=== PATIENT | male | born 1985 | race Caucasian/White ===

== ENCOUNTER 2019-07-03 10:07 | Emergency (ER) | payer OTHER, SELFPAY ==
[2019-07-03 10:19] VITALS: BP 125/82; PULSE 71; RESP 20; TEMP 36.9; O2SAT 100
--- NOTE | 2019-07-03 11:09 | ED.URI ---
HPI - URI/Sore Throat General Chief Complaint: Upper Respiratory Infection Stated Complaint: cough/sinus pressure Source: patient and RN notes reviewed Mode of arrival: ambulatory Limitations: no limitations History of Present Illness HPI Narrative: The patient, a smoker/nondrinker, presents with about 1/2-week history of cough, congestion, possible wheeze. No fever measured, earache, sore throat patient similar episode; symptoms are mild unrelieved with OTC antihistamines. In May for which he had a course of doxycycline; patient advised to discontinue smoking. Patient history of back pain pending injection patient this week- advised to call PMD with discharge med list and diagnosis; Related Data Home Medications Medication Instructions Recorded Confirmed methocarbamol [Robaxin-750] 750 mg PO HS PRN 07/03/19 07/03/19 Allergies Allergy/AdvReac Type Severity Reaction Status Date / Time Penicillins Allergy Severe Swelling Verified 07/03/19 10:22 aspirin Allergy Mild Diarrhea Verified 07/03/19 10:22 amoxicillin Allergy Unknown Unknown Verified 07/03/19 10:22 prednisone AdvReac Swelling Verified 07/03/19 10:31 of the Eye Review of Systems Review of Systems: Narrative: General/Constitutional: No weight loss,fever Eyes: N0: Redness,discharge Ears/Nose/Throat: No: Epistaxis,ear discharge Respiratory: Denies: Hemoptysis Gastrointestinal: No Vomiting, Bleeding-rectal Skin: No Lumps, eruption Neurologic: No Focal Weakness,Sz Hematologic: Denies: Petechiae/Purpura Psychiatric: No: Suicida ideationl All Other Systems: Reviewed and Negative PMFSH Comments At time of signature, agree with nursing past medical, surgical, social and family history. There is no relevant family history pertinent to the presenting complaint Exam Narrative: Exam Narrative: General Appearance: Well appearing, Well nourished EYE: PERRLA, Conjunctiva clear Ears: Auditory canal normal, TM normal Nose: Rhinorrhea, Mucousal erythema Mouth/Throat: MM moist, Uvula midline, Pharyngeal erythema Neck: Supple, No adenopathy Respiratory: No respiratory distress, Breath sounds equal, Clear to auscultation Cardiovascular: RRR, No JVD Musculoskeletal: Non tender, Normal strength Skin: Warm, Dry Neurological: A&O x3, CN II-XII intact Psychiatric: Normal mood, Normal affect Course Vital Signs Vital signs: Vital Signs Temperature 98.4 F 07/03/19 10:19 Pulse Rate 71 07/03/19 10:19 Respiratory Rate 20 07/03/19 10:19 Blood Pressure 125/82 07/03/19 10:19 Pulse Oximetry 100 07/03/19 10:19 Temperature 98.4 F 07/03/19 10:19 Pulse Rate 71 07/03/19 10:19 Respiratory Rate 20 07/03/19 10:19 Blood Pressure 125/82 07/03/19 10:19 Pulse Oximetry 100 07/03/19 10:19 MDM - URI/Sore Throat Lab Data Labs: Influenza A Screen Negative Reference Range: Negative Influenza B Screen Negative Reference Range: Negative Discharge Plan Discharge Clinical Impression: Upper respiratory infection Qualifiers: URI type: acute laryngotracheitis Qualified Code(s): J04.2 - Acute laryngotracheitis Patient Disposition: Home, Self-Care Condition: Stable Instructions: Antibiotic Form, Acute Bronchitis (ED) Prescriptions: New azithromycin 250 mg tablet See Rx Instructions .ROUTE .COMPLEX Qty: 6 RF: 0 codeine-guaifenesin 10-100 mg/5 mL liquid 7.5 ml PO Q6H PRN (Reason: cough) Qty: 118 RF: 0 benzonatate [Tessalon Perles] 100 mg capsule 100 mg PO TID Qty: 20 RF: 1 No Action methocarbamol [Robaxin-750] 750 mg Tablet 750 mg PO HS PRN (Reason: Pain) RF: 0 Interventions: Discharge Disposition Last Done: 07/03/19 10:45 Follow-up/Referrals: UNKNOWN,DOCTOR [Primary Care Provider] -
== END 2019-07-03 10:45 | disposition home or self-care (01) ==
PROVIDERS: Emergency Provider Emergency Medicine
DX: J04.2 Acute laryngotracheitis (principal); F17.210 Nicotine dependence, cigarettes, uncomplicated
CPT/HCPCS: 87804; 99213; G0463

== ENCOUNTER 2019-09-04 12:19 | Emergency (ER) | payer OTHER, SELFPAY ==
[2019-09-04 12:20] VITALS: BP 127/83; PULSE 59; RESP 20; TEMP 36.5; O2SAT 100
--- NOTE | 2019-09-04 12:46 | ED.URI ---
HPI - URI/Sore Throat General Chief Complaint: Upper Respiratory Infection Stated Complaint: drainage/cough/wheezing Time Seen by Provider: 09/04/19 12:33 Source: patient and RN notes reviewed Mode of arrival: ambulatory Limitations: no limitations History of Present Illness HPI Narrative: Patient presents today with a 2-week history of copious postnasal drip, occasional cough that is productive, wheezing at night, nasal congestion. Denies fever, shortness of breath. He has been taking Zyrtec without relief. He does have history of seasonal allergies. Denies history of asthma or COPD. No history of sinus surgeries. MD elicited complaint: cough and nasal congestion Related Data Home Medications Medication Instructions Recorded Confirmed ibuprofen 800 mg PO Q6H PRN 03/30/19 09/04/19 methocarbamol [Robaxin-750] 750 mg PO TID PRN 03/30/19 09/04/19 Allergies Allergy/AdvReac Type Severity Reaction Status Date / Time Penicillins Allergy Difficulty Verified 09/04/19 12:29 Breathing prednisone Allergy Swelling Verified 09/04/19 12:45 of the Eye Review of Systems Review of Systems: Narrative: CONSTITUTIONAL: Denies body aches, fever, chills, or sweats. EYES: Denies visual changes, redness, or discharge. ENT: Denies rhinorrhea, sore throat, or otalgia.+ Congestion, postnasal drip CARDIOVASCULAR: Denies chest pain, palpitations, or edema. RESPIRATORY: Denies dyspnea.+ Cough, wheezing GASTROINTESTINAL: Denies abdominal pain, nausea, vomiting, or diarrhea. GENITOURINARY: Denies dysuria or hematuria. SKIN: Denies rash, itching, or wounds. MUSCULOSKELETAL: Denies back pain, joint pain, or myalgia. NEUROLOGIC: Denies headache, numbness, tingling, or weakness. PSYCH: Denies depression or anxiety. PMFSH Comments At time of signature, I have reviewed and agree with nursing past medical, surgical, social and family history unless otherwise noted. Please see nursing chart for further information. There is no relevant family history pertinent to the presenting complaint Exam Narrative: Exam Narrative: GENERAL: Well-appearing, well-nourished, and in no acute distress. HEAD: Normocephalic, atraumatic. EYES: EOMI. No redness or drainage. Conjunctivae normal. ENT: Mucous membranes pink and moist. Nares clear. Nasal turbinates are slightly edematous with rhinorrhea. TMs normal bilaterally. Throat normal. Uvula midline. Copious clear postnasal drip noted. NECK: Normal AROM. Supple. No lymphadenopathy. CHEST: No respiratory distress. Clear to auscultation. HEART: Regular rate and rhythm. No murmur appreciated. Normal peripheral pulses. EXTREMITIES: Normal range of motion. No edema. SKIN: Warm, dry, no rash. Capillary refill normal. Normal skin turgor. NEURO: No focal deficits. Alert and oriented x3. Gait steady. PSYCH: Normal affect. No signs of depression or anxiety. Course Vital Signs Vital signs: Vital Signs Temperature 97.7 F 09/04/19 12:20 Pulse Rate 59 L 09/04/19 12:20 Respiratory Rate 20 09/04/19 12:20 Blood Pressure 127/83 09/04/19 12:20 Pulse Oximetry 100 09/04/19 12:20 Temperature 97.7 F 09/04/19 12:20 Pulse Rate 59 L 09/04/19 12:20 Respiratory Rate 20 09/04/19 12:20 Blood Pressure 127/83 09/04/19 12:20 Pulse Oximetry 100 09/04/19 12:20 Reviewed. Pt has been instructed to follow up with his PCP regarding his elevated blood pressure today. MDM - URI/Sore Throat Differential Diagnosis Differential diagnosis: Likely upper respiratory infection, otitis media, sinusitis, viral infection, bronchitis and other (Allergic rhinitis) Medical Records Attestation: I reviewed the patient's medical records. Critical Care Time Critical Care Time Critical Care Time: No Discharge Plan Discharge Clinical Impression: Allergic rhinitis Qualifiers: Allergic rhinitis trigger: unspecified Allergic rhinitis seasonality: unspecified Qualified Code(s): J30.9 - Allergic rhinitis,
== END 2019-09-04 12:50 | disposition home or self-care (01) ==
PROVIDERS: Emergency Provider Nurse Practitioner
DX: J30.9 Allergic rhinitis, unspecified (principal)
CPT/HCPCS: 99213; G0463

== ENCOUNTER → 2019-09-20 12:42 | Outpatient (CLI) | payer OTHER, SELFPAY ==
--- NOTE | ~2019-09-20 | XR_ITS ---
XR abdomen/kub 1V 09/20/2019 13:06 Indication: Possible mass in the abdomen Procedure: Upright AP view of the abdomen Comparison: 04/22/2004 Findings: Nonobstructive bowel gas pattern. Moderate colonic fecal loading. No abnormal calcification s. No acute osseous abnormality. There are surgical changes at L5-S1. Impression: 1: No acute abdominal abnormality. Reviewed, dictated and finalized at location A. Impression: 1: No acute abdominal abnormality.
== END ==
PROVIDERS: PCP Emergency Medicine; Visit Provider Emergency Medicine
DX: R19.00 Intra-abdominal and pelvic swelling, mass and lump, unspecified site (principal)
CPT/HCPCS: 74018

== ENCOUNTER → 2020-01-02 10:46 | Outpatient (CLI) | payer OTHER, SELFPAY ==
--- NOTE | ~2020-01-02 | XR_ITS ---
XR chest 2V DATE: 01/02/2020 11:03 INDICATION: Tobacco use TECHNIQUE: 2 views COMPARISON: 04/08/2019 PA and lateral chest FINDINGS: Normal heart size. No hilar or mediastinal enlargement. No pulmonary infiltrate or consolid ation, pleural effusion or pulmonary vascular congestion or pneumothorax is detected. IMPRESSION: No active cardiopulmonary disease Reviewed, dictated and finalized at location A.
== END ==
PROVIDERS: PCP Emergency Medicine; Visit Provider Emergency Medicine
DX: Z72.0 Tobacco use (principal)
CPT/HCPCS: 71046

== ENCOUNTER 2020-06-16 08:23 | Outpatient (NON) | payer OTHER, SELFPAY ==
[2020-06-17 17:16] LABS: SARS-CoV-2 RNA PCR Negative
== END 2020-06-16 08:24 ==
PROVIDERS: PCP Emergency Medicine; Visit Provider Emergency Medicine
DX: R68.89 Other general symptoms and signs (principal); Z20.822 Contact with and (suspected) exposure to COVID-19
CPT/HCPCS: C9803; U0003; U0005

== ENCOUNTER → 2020-07-27 12:29 | Outpatient (CLI) | payer OTHER, SELFPAY ==
--- NOTE | ~2020-07-27 | XR_ITS ---
EXAMINATION: XR chest 2V DATE: 07/27/2020 12:44 INDICATION: Cough and shortness of breath. TECHNIQUE: Frontal and lateral views of the chest were obtained. COMPARISON: Chest 2 views 01/02/2020 FINDINGS: There is mild atelectasis in left lower lung zone. No pleural effusion or pneumothorax. The heart size is normal. IMPRESSION: 1. Mild atelectasis in left lower lung zone. Reviewed, dictated and finalized at location A. NT SCOUT
== END ==
PROVIDERS: PCP Emergency Medicine; Visit Provider Emergency Medicine
DX: R05 Cough (principal); R91.8 Other nonspecific abnormal finding of lung field
CPT/HCPCS: 71046

== ENCOUNTER → 2020-07-30 09:26 | Outpatient (CLI) | payer OTHER, SELFPAY ==
[2020-07-31 22:47] LABS: SARS-CoV-2 RNA PCR Negative
== END ==
PROVIDERS: PCP Emergency Medicine; Visit Provider Emergency Medicine
DX: Z20.822 Contact with and (suspected) exposure to COVID-19 (principal); J06.9 Acute upper respiratory infection, unspecified
CPT/HCPCS: C9803; U0003; U0005

== ENCOUNTER 2020-08-22 07:55 | Outpatient (CLI) | payer OTHER, SELFPAY ==
--- NOTE | 2020-08-22 12:05 | WPDPFTINT ---
PFT Interpretation This is a pulmonary function test with spirometry, plethysmography and diffusing capacity. The test was performed and results interpreted in accordance with the 2019 and 2005 ATS/ERS Task Force guidelines respectively using the Global Lung Function Initiative-2012 reference equations. Patient demonstrated good effort and cooperation. Reproducibility criteria were met. The quality of the pre bronchodilator spirometry maneuver was Grade B. Findings: Spirometry: the contour of the inspiratory and expiratory flow tracing are normal. The FVC is 4.00 L, 84% predicted. The FEV1 is 3.22 L, 82% predicted. The FEV1: FVC ratio was 80%. Plethysmography: The total lung capacity is 5.35 L, 85% predicted. The functional residual capacity is 2.59 L, 85% predicted. The residual volume is 1.36 L, 85% predicted. Diffusing capacity: The absolute diffusion capacity is 16.4, 51% predicted. The diffusing capacity corrected for alveolar volume is 3.61, 70% predicted. Impression: The spirometry is normal without evidence of an obstructive abnormality. The lung volumes are normal. The absolute diffusing capacity is moderately decreased and is mildly decreased when corrected for alveolar volume. There are no prior studies for comparison PFT Procedure Performed PFT Procedure Performed Plethysmography (Lung Vol) Diffusing Cap (DLCO) Flow Vol Loop
== END 2020-08-22 07:56 | disposition home or self-care (01) ==
PROVIDERS: PCP Emergency Medicine; Visit Provider Emergency Medicine
DX: J40 Bronchitis, not specified as acute or chronic (principal)
CPT/HCPCS: 94375; 94726; 94729

== ENCOUNTER → 2020-10-16 12:54 | Outpatient (CLI) | payer OTHER, SELFPAY ==
--- NOTE | ~2020-10-16 | XR_ITS ---
XR lumbar spine 2-3V 10/16/2020 13:16 Indication: Chronic low back pain Procedure: 3 views lumbar spine Comparison: 10/15/2005 Findings: There is disc narrowing at all lumbar levels. There is prosthetic cage devices at the L5-S1 level. There is mild multilevel facet hypertrophy. There is hypertrophy of the spinous processes whi ch abuts at the lower lumbar spine. Pedicles intact. No acute fracture or traumatic malalignment. No evidence for spondylolisthesis. Sacral foramen are symmetric. Impression: 1: Mild-moderate lumbar spondylosis. Reviewed, dictated and finalized at location A. Impression: 1: Mild-moderate lumbar spondylosis.
== END ==
PROVIDERS: PCP Pain Medicine Pain Medicine; Visit Provider Pain Medicine Pain Medicine
DX: M47.26 Other spondylosis with radiculopathy, lumbar region (principal)
CPT/HCPCS: 72100

== ENCOUNTER 2021-03-14 15:47 | Outpatient (RCR) | payer OTHER, SELFPAY ==
[2021-03-14 16:05] LABS: Basophils Absolute Auto 0.1 K/mm3 (0.0-0.1); Basophils Percent Auto 0.6 % (0.2-1.2); Eosinophils Absolute Auto 0.3 K/mm3 (0-0.3); Eosinophils Percent Auto 2.4 % (0-4.4); Hematocrit 42.8 % (42.0-52.0); Hemoglobin 14.4 g/dL (14.0-18.0); Immature Granulocyte Absolute 0.03 K/mm3 (0.00-0.031); Immature Granulocyte Percent A 0.3 % (0-0.5); Lymphocytes Absolute Auto 3.21 K/mm3 (0.9-3.2); Lymphocytes Percent Auto 30.9 % (18.3-44.2); Mean Corpuscular HGB Conc 33.6 g/dl (32-36); Mean Corpuscular Hemoglobin 30.7 pg (26-34); Mean Corpuscular Volume 91.3 fl (80-100); Mean Platelet Volume 10.3 fl (7.4-10.4); Monocytes Absolute Auto 0.9 K/mm3 (0.1-0.6); Monocytes Percent Auto 8.5 % (2.6-8.5); Neutrophils Percent Auto 57.3 % (45.5-73.1); Platelet Count Result 275 k/mm3 (150-375); Red Blood Count 4.69 M/mm3 (4.6-6.20); Red Cell Distribution Width 12.8 % (11.5-14.5); White Blood Count 10.4 K/mm3 (4.5-10.0)
[2021-03-14 17:02] LABS: Alanine Aminotransferase 31 U/L (4-50); Albumin Level 4.5 g/dL (3.5-5.1); Alkaline Phosphatase 90 U/L (38-126); Anion Gap 10 mmol/L (8-16); Aspartate Amino Transferase 29 U/L (17-59); Bilirubin,Total 0.5 mg/dL (0.2-1.3); Blood Urea Nitrogen 8 mg/dL (9-20); CRP 0.8 mg/dL (<1.0); Calcium 9.3 mg/dL (8.4-10.2); Carbon Dioxide 29 mmol/L (22-30); Chloride 102 mmol/L (98-107); Estimated Glomerular Filt Rate > 60; Glucose 87 mg/dL (65-110); Potassium 3.4 mmol/L (3.4-5.0); Sodium 141 mmol/L (137-145)
[2021-03-14 17:25] LABS: Erythrocyte Sedimentation Rate 11 mm/hr (0-20)
== END 2021-06-12 23:59 | disposition home or self-care (01) ==
LOC: ANHLAB 15:47
PROVIDERS: PCP Pain Medicine Pain Medicine; Visit Provider Internal Medicine Hematology & Oncology
DX: D72.829 Elevated white blood cell count, unspecified (principal)
CPT/HCPCS: 36415; 80053; 85025; 85652; 86140; 88184

== ENCOUNTER 2021-03-27 14:53 | Outpatient (CLI) | payer OTHER, SELFPAY ==
--- NOTE | ~2021-03-27 | XR_ITS ---
XR chest 2V DATE: 03/27/2021 15:21 INDICATION: Cough. Covid-positive. TECHNIQUE: 2 views COMPARISON: 07/27/2020 2 view chest FINDINGS: Normal heart size. No hilar or mediastinal enlargement. No pulmonary infiltrate or consolid ation, pleural effusion or pulmonary vascular congestion or pneumothorax. IMPRESSION: No active cardiopulmonary disease Reviewed, dictated and finalized at location A.
== END 2021-03-27 14:54 | disposition home or self-care (01) ==
LOC: ANHIMG 15:01
PROVIDERS: PCP Emergency Medicine; Visit Provider Emergency Medicine
DX: U07.1 COVID-19 (principal); R05.9 Cough, unspecified
CPT/HCPCS: 71046

== ENCOUNTER 2021-10-08 14:34 | Emergency (ER) | payer OTHER, SELFPAY ==
--- NOTE | ~2021-10-08 | XR_ITS ---
XR foot RT min 3V 10/08/2021 14:55 Indication: Right foot pain Procedure: 4 views right foot Comparison: No prior studies for comparison. Findings: There is mild osteoarthritis of the first MTP joint. No fracture or traumatic malalignment. Lisfranc joint intact. Impression: 1: No acute bone or joint abnormality. 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 Reviewed, dictated and finalized at location A. Impression: 1: No acute bone or joint abnormality. 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
[2021-10-08 14:44] VITALS: BP 123/80; PULSE 82; RESP 16; TEMP 36.9; O2SAT 98
--- NOTE | 2021-10-08 14:52 | ED.LOWEXIN ---
HPI - Extremity Injury (Lower) General Chief Complaint: Extremity Injury, Lower Stated Complaint: right foot pain Time Seen by Provider: 10/08/21 14:54 Source: patient, RN notes reviewed and old records reviewed Mode of arrival: ambulatory Limitations: no limitations History of Present Illness HPI Narrative: 36-year-old male presents to the [facility] with complaints of right foot pain since stepping in a hole. Has full range of motion, positive pedal pulse. No treatment prior to arrival Related Data Home Medications Medication Instructions Recorded Confirmed cetirizine [Zyrtec] 10 mg PO DAILY 10/08/21 10/08/21 Allergies Allergy/AdvReac Type Severity Reaction Status Date / Time Penicillins Allergy Severe Swelling Verified 09/20/19 18:27 aspirin Allergy Mild Diarrhea Verified 09/20/19 18:27 amoxicillin Allergy Unknown Unknown Verified 09/20/19 18:27 prednisone AdvReac Swelling Verified 09/20/19 18:27 of the Eye Review of Systems Review of Systems: All systems reviewed & are unremarkable except as noted in HPI and below Constitutional: Constitutional: Reports no additional constitutional complaints, Denies chills and Denies fever(s) Eyes: Eyes: Reports no additional eye complaints ENT: Reports system reviewed and no additional complaints, except as documented Cardiovascular: Cardiovascular: Reports no additional cardiovascular complaints and Denies chest pain Respiratory: Respiratory: Reports no additional respiratory complaints and Denies cough Gastrointestinal: Gastrointestinal: Reports no additional gastrointestinal complaints and Denies abdominal pain Musculoskeletal: Musculoskeletal: Reports as per HPI, Reports arthralgias and Reports joint swelling (Right foot first metatarsal) Integumentary/Breasts: Skin/Breast: Reports system reviewed and no additional complaints, except as docu and Denies rash Neurologic: Reports system reviewed and no additional complaints, except as documented Psychiatric: Psychiatric: Reports no additional psychiatric complaints Allergic/Immunologic: Allergic/Immunologic: Reports no additional allergic/immunologic complaints PMFSH Past Medical History Medical History Patient denies medical problems Surgical History Surgical History No pertinent past surgical history Social History Social History Smoking status: Current every day smoker Gender identity (if verbalized by the patient): Male Comments At the time of my signature, I reviewed and agree with the nursing past medical, surgical, social, and family history. There is no relevant family history pertinent to the patient complaint. Exam Const: General: healthy appearing, no acute distress and alert Nutritional Appearance: well nourished Orientation/consciousness: patient oriented x3 Limitations: no limitations HENMT: Head: normal to inspection Eyes: Pupils: Equal, round and reactive pupils present Neck: Neck: normal visual inspection, no lymphadenopathy and no meningeal signs Chest: Chest palpation & inspection: normal inspection of the chest Resp: Effort & Inspection: normal respiratory effort Auscultation: clear to auscultation bilaterally Cardio: Rate: regular rate Rhythm: regular rhythm Back/Spine/Pelvis: Back: no CVA tenderness Skin: General skin exam: normal color Neuro: General: patient oriented x3, moves all extremities, no meningeal signs and no focal motor deficits Cranial nerves: Yes Equal, round and reactive pupils present Speech: normal speech Gait exam (Neuro): Normal gait present Extrem: General: capillary refill normal and normal exam except as noted Ankle/foot/toe images: 1. Bruising and swelling noted Psych: Appearance: grossly normal and well kempt Mental Status: mental status grossly normal Affect:
== END 2021-10-08 15:14 | disposition home or self-care (01) ==
PROVIDERS: Emergency Provider Nurse Practitioner; PCP Emergency Medicine
DX: S90.31XA Contusion of right foot, initial encounter (principal); W17.2XXA Fall into hole, initial encounter; F17.200 Nicotine dependence, unspecified, uncomplicated
CPT/HCPCS: 73630; 99213; G0463

== ENCOUNTER → 2021-11-05 00:18 | Outpatient (CLI) | payer OTHER, SELFPAY ==
[2021-11-05 16:55] LABS: SARS-CoV-2 RNA PCR Positive
== END ==
PROVIDERS: PCP Emergency Medicine; Visit Provider Emergency Medicine
DX: U07.1 COVID-19 (principal)
CPT/HCPCS: C9803; U0003; U0005

== ENCOUNTER 2021-11-05 23:56 | Emergency (ER) | payer OTHER, SELFPAY ==
--- NOTE | ~2021-11-05 | CT_ITS ---
EXAMINATION: CT abdomen pelvis wo con DATE: 11/06/2021 00:49 INDICATION: Right lower quadrant and bilateral flank pain TECHNIQUE: Computed tomography (CT) of the abdomen and pelvis was performed without intravenous contr ast. Automated exposure control and iterative reconstruction technique were employed. Exam dose: 578 .96 mGy-cm total exam DLP. COMPARISON: 09/20/2019 KUB FINDINGS: Minimal dependent atelectasis of the lingula and lower lobes. Normal heart size. No pericar dial or pleural effusion. The liver, gallbladder, bile ducts, spleen, pancreas, pancreatic duct, and adrenal glands and kidneys appear normal. Normal caliber of the abdominal aorta. No intraperitoneal or retroperitoneal or pelvi c mass lesion or adenopathy or ascites. The urinary bladder and prostate gland are normal. No evidence of appendicitis. There are occasional diverticula of the left colon; no CT evidence of di verticulitis. No bowel obstruction or intraperitoneal free air. Small fat-containing umbilical hernia. Status post interbody spinal fusion at L5-S1. IMPRESSION: No evidence of appendicitis Normal colonic diverticulosis Reviewed, dictated and finalized at Location A. Reviewed, dictated and finalized at location A.
[2021-11-05 23:58] VITALS: BP 136/90; PULSE 76; RESP 18; TEMP 36.4; O2SAT 100
[2021-11-06] MEDS: KETOROLAC 30 MG/ML VIAL (*BKC) IV PUSH (01:04)
[2021-11-06 01:13] LABS: Basophils Absolute Auto 0.1 K/mm3 (0.0-0.1); Basophils Percent Auto 0.8 % (0.2-1.2); Eosinophils Absolute Auto 0.3 K/mm3 (0-0.3); Eosinophils Percent Auto 4.7 % (0-4.4); Hemoglobin 13.9 g/dL (14.0-18.0); Immature Granulocyte Absolute 0.01 K/mm3 (0.00-0.031); Immature Granulocyte Percent A 0.2 % (0-0.5); Lymphocytes Percent Auto 48.9 % (18.3-44.2); Mean Corpuscular HGB Conc 33.1 g/dl (32-36); Mean Corpuscular Volume 93.5 fl (80-100); Mean Platelet Volume 10.9 fl (7.4-10.4); Monocytes Absolute Auto 0.8 K/mm3 (0.1-0.6); Neutrophils Absolute Auto 1.9 K/mm3 (1.3-6.7); Neutrophils Percent Auto 32.4 % (45.5-73.1); Platelet Count Result 186 k/mm3 (150-375); Red Blood Count 4.49 M/mm3 (4.6-6.20); Red Cell Distribution Width 12.7 % (11.5-14.5); White Blood Count 5.9 K/mm3 (4.5-10.0)
[2021-11-06 01:26] LABS: Anion Gap 5 mmol/L (8-16); Blood Urea Nitrogen 8 mg/dL (9-20); Calcium 8.2 mg/dL (8.4-10.2); Carbon Dioxide 29 mmol/L (22-30); Chloride 104 mmol/L (98-107); Estimated CRCL calculation 93 ml/min; Estimated Glomerular Filt Rate > 60; Glucose 98 mg/dL (65-110); Potassium 3.6 mmol/L (3.4-5.0); Sodium 138 mmol/L (137-145)
[2021-11-06 01:28] LABS: Appearance Urine Clear (Clear); Bilirubin Urine Negative (Negative); Blood Urine Trace-lysed (Negative); Color Urine Yellow (Yellow); Glucose Urine UA Negative (Negative); Ketones Urine Negative (Negative); Leukocyte Esterase Ur Negative LEU/UL (Negative); Nitrate Urine Negative (Negative); Protein Urine Negative (Negative); Urobilinogen Urine 0.2 mg/dL (<2.0)
[2021-11-06 01:29] LABS: Bacteria Urine Trace /hpf; Squamous Epithelial Cell Urine Rare /hpf (Few); WBC Urine 0-3 /hpf
[2021-11-06 01:30] LABS: Add Urine Microscopic? YES
[2021-11-06 02:30] VITALS: BP 120/74; PULSE 56; RESP 12; O2SAT 94
--- NOTE | 2021-11-06 02:32 | ED.GENADULT ---
HPI - General Adult General Chief complaint: Back Pain/Injury Stated complaint: lower back pain Time Seen by Provider: 11/06/21 00:22 History of Present Illness HPI narrative: Patient is a 36-year-old male who presents ER with low back pain reports its aching. Began this evening. He is also having aching in his abdomen. Both sides. No nausea or vomiting or diarrhea. Patient was diagnosed with COVID-19 today. He been having fevers 2 days ago. He is also been feeling fatigued. Previous COVID-19 infection left him with diarrhea. He has not yet experienced that. Patient denies any trauma or injury that could be making his back worse. No lower extremity numbness or tingling. Related Data Home Medications Medication Instructions Recorded Confirmed cetirizine 10 mg tablet (Zyrtec) 10 mg PO DAILY 10/08/21 10/08/21 Allergies Allergy/AdvReac Type Severity Reaction Status Date / Time Penicillins Allergy Severe Swelling Verified 11/06/21 00:23 aspirin Allergy Mild Diarrhea Verified 11/06/21 00:23 amoxicillin Allergy Unknown Unknown Verified 11/06/21 00:23 prednisone AdvReac Swelling Verified 11/06/21 00:23 of the Eye Review of Systems Review of Systems: All systems reviewed & are unremarkable except as noted in HPI and below Constitutional: Constitutional: Denies chills, Reports fatigue and Reports fever(s) ENT: Denies nasal congestion and Denies sore throat Cardiovascular: Cardiovascular: Denies chest pain and Denies rapid heart rate Respiratory: Respiratory: Reports cough and Denies dyspnea Gastrointestinal: Gastrointestinal: Reports abdominal pain, Denies constipation, Denies diarrhea, Denies nausea and Denies vomiting Musculoskeletal: Musculoskeletal: Reports back pain and Reports myalgias Neurologic: Denies headache(s), Denies focal weakness and Denies numbness PMFSH Past Medical History Medical History (Updated 11/06/21 @ 02:55 by Brennan Mejia MD) Patient denies medical problems Surgical History Surgical History (Updated 11/06/21 @ 02:55 by Brennan Mejia MD) History of lumbar fusion Social History Social History Smoking status: Current every day smoker Gender identity (if verbalized by the patient): Male Exam Narrative: GENERAL: Well-appearing, well-nourished, and in no acute distress. HEAD: Normocephalic, atraumatic. EYES: PERRL and EOMI. CHEST: Clear to auscultation. No respiratory distress. HEART: Regular rate and rhythm. Normal peripheral pulses. ABDOMEN: Soft, mild discomfort right lower quadrant without rebound or guarding, nondistended. Back: No reproducible midline tenderness of T/L-spine. No palpable spasm or reproducible tenderness in the paraspinal musculature of the back. EXTREMITIES: Normal range of motion. No edema. NEURO: Alert and oriented x3. PSYCH: Normal mood and affect. Course Course Emergency Course: Unremarkable evaluation. Pain improved with Toradol. Recommend anti-inflammatories muscle relaxers for home. Patient may be developing enteritis related to his COVID infection. Vital Signs Vital signs: Vital Signs Temperature 97.5 F L 11/05/21 23:58 Pulse Rate 76 11/05/21 23:58 Respiratory Rate 18 11/05/21 23:58 Blood Pressure 136/90 11/05/21 23:58 Pulse Oximetry 100 11/05/21 23:58 Oxygen Delivery Room Air 11/05/21 23:58 Temperature 97.5 F L 11/05/21 23:58 Pulse Rate 56 L 11/06/21 02:30 Respiratory Rate 12 11/06/21 02:30 Blood Pressure 120/74 11/06/21 02:30 Pulse Oximetry 94 11/06/21 02:30 Oxygen Delivery Room Air 11/05/21 23:58 Medical Decision Making Vital Signs Vital Signs: Vital Signs Temperature 97.5 F L 11/05/21 23:58 Pulse Rate 76 11/05/21 23:58 Respiratory Rate 18 11/05/21 23:58 Blood Pressure 136/90 11/05/21 23:58 Pulse Oximetry 100 11/05/21 23:58 Oxygen Delivery Room Air 11/05/21 23:58 Temperature 9
== END 2021-11-06 03:00 | disposition home or self-care (01) ==
PROVIDERS: Emergency Provider Emergency Medicine; PCP Emergency Medicine
DX: U07.1 COVID-19 (principal); Z98.1 Arthrodesis status; F17.200 Nicotine dependence, unspecified, uncomplicated; R10.30 Lower abdominal pain, unspecified
CPT/HCPCS: 36415; 74176; 80048; 81001; 85025; 96374; 99284; J1885

== ENCOUNTER 2022-02-09 12:27 | Emergency (ER) | payer OTHER, SELFPAY ==
[2022-02-09 12:35] VITALS: BP 121/67; PULSE 77; RESP 16; TEMP 36.1; O2SAT 99
--- NOTE | 2022-02-09 12:46 | ED.BACK ---
HPI - Back Pain/Injury General Chief Complaint: Back Pain/Injury Stated Complaint: Back Pain Time Seen by Provider: 02/09/22 12:40 Source: patient Mode of arrival: ambulatory Limitations: no limitations History of Present Illness HPI Narrative: Mr. Marvin is a 36-year-old male patient presenting to the clinic today with complaints of lower back pain with radiation to the right leg. He reports that this has been ongoing for over a week. States that he was picking up his 4-year-old daughter from the floor and hurt his back. He does report history of back fusion L5-S1 and has history of chronic back pain. Has taken hydrocodone and muscle relaxers for this and the pain persists. States he has taken his last month muscle relaxer today. He denies any incontinence of bowel or bladder or any saddle anesthesia. Related Data Home Medications Medication Instructions Recorded Confirmed fexofenadine 180 mg tablet mg 02/09/22 02/09/22 (Allergy Relief (fexofenadine)) Allergies Allergy/AdvReac Type Severity Reaction Status Date / Time Penicillins Allergy Severe Swelling Verified 02/09/22 12:49 amoxicillin Allergy Unknown Unknown Verified 02/09/22 12:49 aspirin AdvReac Mild Diarrhea Verified 02/09/22 13:02 prednisone AdvReac Swelling Verified 02/09/22 12:49 of the Eye Review of Systems Review of Systems: Pertinent positives per HPI. Patient denies any fever, chills, rash, headache, visual changes, dizziness, cough, runny nose, sore throat, shortness of breath, chest pain, palpitations, nausea, vomiting, diarrhea, constipation, abdominal pain, or any urinary issues. [facility] Past Medical History Medical History Patient denies medical problems Surgical History Surgical History History of lumbar fusion Social History Social History Smoking status: Current every day smoker Gender identity (if verbalized by the patient): Male Comments At the time of my signature, I reviewed and agree with the nursing past medical, surgical, social, and family history. There is no relevant family history pertinent to the patient complaint. Exam Narrative: General: Well-developed, well nourished, in no apparent distress Head: Normocephalic, atraumatic. Cardio: Regular rate and rhythm, s1 and s2 normal, no murmur appreciated. Resp: Clear to auscultation bilaterally, no rhonchi, rales, wheezing or rubs. Musculoskeletal: No deformity, tender to palpation over the mid thoracic spine along the paraspinous muscles all the way down to the LS-spine to palpation, radiation of pain going to the right leg, right straight leg test positive at approximately 45 degrees, left straight leg test positive at 80 degrees, limited range of motion with flexion and extension due to discomfort. Bilateral lower muscle strength strong and equal, patellar reflexes 2+ on the left and 1+ on the right, negative foot drop, peripheral pulse strong, no edema, no cyanosis, normal gait and station Course Course Emergency Course: Portions of this record may have been created with voice recognition software. Level of Care: Express Care Visit Vital Signs Vital signs: Vital Signs Temperature 36.1 C L 02/09/22 12:35 Pulse Rate 77 02/09/22 12:35 Respiratory Rate 16 02/09/22 12:35 Blood Pressure 121/67 02/09/22 12:35 Pulse Oximetry 99 02/09/22 12:35 Oxygen Delivery Room Air 02/09/22 12:35 Temperature 36.1 C L 02/09/22 12:35 Pulse Rate 77 02/09/22 12:35 Respiratory Rate 16 02/09/22 12:35 Blood Pressure 121/67 02/09/22 12:35 Pulse Oximetry 99 02/09/22 12:35 Oxygen Delivery Room Air 02/09/22 12:35 Vital signs reviewed MDM - Back Pain/Injury MDM Narrative Medical decision making narrative: At the time of visit patient is resting comfortably
[2022-02-09] MEDS: KETOROLAC (*BKC) 60 MG/2 ML VIAL IM (13:00)
== END 2022-02-09 13:03 | disposition home or self-care (01) ==
PROVIDERS: Emergency Provider Nurse Practitioner Family; PCP Emergency Medicine
DX: M54.41 Lumbago with sciatica, right side (principal)
CPT/HCPCS: 96372; 99213; G0463; J1885

== ENCOUNTER 2022-06-27 20:33 | Emergency (ER) | payer OTHER, SELFPAY ==
--- NOTE | ~2022-06-27 | XR_ITS ---
EXAMINATION: XR chest 1V portable DATE: 06/27/2022 21:27 INDICATION: Cough and shortness of breath. TECHNIQUE: A single frontal view of the chest was obtained. COMPARISON: Chest 2 views 03/27/2021 FINDINGS: The chest demonstrates clear lungs without pneumonia, pleural effusion, or pneumothorax. Th e heart size is normal. IMPRESSION: 1. No acute cardiopulmonary disease. Reviewed, dictated and finalized at location A. OR
[2022-06-27 20:40] VITALS: BP 131/70; PULSE 81; RESP 16; TEMP 36.6; O2SAT 99
[2022-06-27 21:28] VITALS: O2SAT 99
[2022-06-27] MEDS: BENZONATATE 100 MG CAPSULE 200 MG PO (21:55)
--- NOTE | 2022-06-27 21:55 | ED.GENADULT ---
HPI - General Adult General Chief complaint: Upper Respiratory Infection Stated complaint: SOB, wheezing, cough Time Seen by Provider: 06/27/22 21:14 History of Present Illness HPI narrative: 37-year-old male history of smoking and COVID x2 presented to the emergency department for evaluation of cough and shortness of breath since Thursday. Patient began having symptoms on Thursday and was evaluated by his primary care physician. Patient states on Thursday symptoms were not improving so he called his family doctor and was started on a Z-Marvel. Patient has been taking the Z-Marvel since Thursday but states he still has symptoms. Patient reports he is still smoking but not as heavily. Patient is complaining of wheezing and persistent cough. Related Data Home Medications Medication Instructions Recorded Confirmed hydrocodone 5 mg-acetaminophen 325 tablet 06/27/22 mg tablet Allergies Allergy/AdvReac Type Severity Reaction Status Date / Time Penicillins Allergy Severe Swelling Verified 06/27/22 21:23 amoxicillin Allergy Unknown Unknown Verified 06/27/22 21:23 aspirin AdvReac Mild Diarrhea Verified 06/27/22 21:23 prednisone AdvReac Swelling Verified 06/27/22 21:23 of the Eye Review of Systems Review of Systems: CONSTITUTIONAL: Denies fever, chills, or sweats. EYES: Denies visual changes, redness, or discharge. ENT: Denies rhinorrhea, congestion, sore throat, or otalgia. CARDIOVASCULAR: Denies chest pain, palpitations, or edema. RESPIRATORY: See HPI GASTROINTESTINAL: Denies abdominal pain, nausea, vomiting, or diarrhea. GENITOURINARY: Denies dysuria or hematuria. SKIN: Denies rash or itching. MUSCULOSKELETAL: Denies back pain, joint pain, or myalgia. NEUROLOGIC: Denies headache, numbness, or weakness. [facility] Past Medical History Medical History Patient denies medical problems Surgical History Surgical History History of lumbar fusion Social History Social History Smoking status: Current every day smoker Gender identity (if verbalized by the patient): Male Exam Narrative: APPEARANCE: Well appearing, no pain, no distress, well-nourished. HEAD: normocephalic, atraumatic. EYES: PERRLA/EOMI, conjunctivae clear. NOSE: Normal no drainage NECK: Supple. No adenopathy, no masses. RESPIRATORY: Airway patent, respirations nonlabored. Expiratory wheeze in all lung perales CARDIOVASCULAR: Regular rate and rhythm without murmurs rubs or gallops. ABDOMINAL: Soft, nontender, nondistended, normal bowel sounds MUSCULOSKELETAL: Moves all extremities. Strength/ROM intact, No edema, No calf tenderness. NEURO: Alert. Cranial nerves II through XII intact. Grossly intact SKIN: Warm, dry. Normal Color Course Course Emergency Course: Patient's symptoms do seem consistent with a pneumonia vs COPD exacerbation. X-ray shows no acute abnormality. Patient is already being treated for pneumonia. Patient may also have some underlying COPD due to his smoking history. Patient will be advised to continue taking his Z-Marvel. Patient was treated with nebulized albuterol and p.o. Tessalon Perles. Patient was updated on results of his work-up. Patient will be provided Tessalon Perles and albuterol inhaler for home. Patient was encouraged to quit smoking. Vital Signs Vital signs: Vital Signs Temperature 97.9 F 06/27/22 20:40 Pulse Rate 81 06/27/22 20:40 Respiratory Rate 16 06/27/22 20:40 Blood Pressure 131/70 06/27/22 20:40 Pulse Oximetry 99 06/27/22 20:40 Oxygen Delivery Room Air 06/27/22 20:40 Temperature 97.9 F 06/27/22 20:40 Pulse Rate 74 06/27/22 22:02 Respiratory Rate 16 06/27/22 22:02 Blood Pressure 131/70 06/27/22 20:40 Pulse Oximetry 99 06/27/22 21:28 Oxygen Delivery Room Air 06/27/22 21:28
[2022-06-27] MEDS: ALBUTEROL SULFATE NEB 2.5 MG/3 ML INH 5 MG INHALATION (22:00)
[2022-06-27 22:02] VITALS: PULSE 74; RESP 16
[2022-06-27 22:05] LABS: Influenza A QL RT-PCR Negative (Negative); Influenza B QL RT-PCR Negative (Negative); RSV RNA, RT-PCR Negative (Negative); SARS-CoV-2 RNA PCR Negative
== END 2022-06-27 22:25 | disposition home or self-care (01) ==
PROVIDERS: Emergency Provider Emergency Medicine; PCP Emergency Medicine
DX: J18.9 Pneumonia, unspecified organism (principal); F17.200 Nicotine dependence, unspecified, uncomplicated; Z20.822 Contact with and (suspected) exposure to COVID-19; Z98.1 Arthrodesis status
CPT/HCPCS: 71045; 87637; 94640; 99283; A9270

== ENCOUNTER 2022-07-20 11:19 | Emergency (ER) | payer OTHER, SELFPAY ==
[2022-07-20 12:12] VITALS: BP 117/70; PULSE 61; RESP 16; TEMP 36.3; O2SAT 99
--- NOTE | 2022-07-20 12:25 | ED.URI ---
HPI - URI/Sore Throat General Chief Complaint: Upper Respiratory Infection Stated Complaint: uri Time Seen by Provider: 07/20/22 12:28 Source: patient and RN notes reviewed Mode of arrival: ambulatory Limitations: no limitations History of Present Illness HPI Narrative: 37-year-old male presented for complaint of nasal congestion, postnasal drainage, and cough since yesterday. He is taking Mucinex for symptoms. He endorses daughter has similar symptoms. He denies shortness of breath, wheezing, nausea, vomiting, diarrhea, fevers or chills. Patient was smoking about 3 weeks ago, stating he was smoking up to 3 packs per day. History of pneumonia. He is requesting a Z-Marvel. MD elicited complaint: cough Related Data Allergies Allergy/AdvReac Type Severity Reaction Status Date / Time Penicillins Allergy Severe Swelling Verified 07/20/22 12:08 amoxicillin Allergy Unknown Unknown Verified 07/20/22 12:08 aspirin AdvReac Mild Diarrhea Verified 07/20/22 12:08 prednisone AdvReac Swelling Verified 07/20/22 12:08 of the Eye Review of Systems Review of Systems: ROS per HPI [facility] Past Medical History Medical History Patient denies medical problems Surgical History Surgical History History of lumbar fusion Social History Social History Smoking status: Current every day smoker Gender identity (if verbalized by the patient): Male Exam Narrative: GENERAL: well-appearing, appears older than stated age EYES: PERRLA, conjunctivae clear ENT: Mucous membranes moist. TMs pearly yin with light reflex bilaterally; no tragal tenderness. Oropharynx mildly erythematous without lesions or exudate NECK: Supple. No lymphadenopathy CHEST: Clear to auscultation, breath sounds equal. Occasional mortgage protection specialist cough. No wheezing, rhonchi, rales, or stridor. No respiratory distress, speaks in full sentences. HEART: Regular rate and rhythm. No murmur heard. SKIN: Warm, dry, no rash. NEURO: Alert and oriented x3. Course Course Emergency Course: Patient is aware of diagnosis, understands and agrees to treatment plan. Anticipatory guidance given. Patient agrees to follow-up as directed and is aware of reasons to seek care at the emergency department. Portions of this record may have been created with voice recognition software Level of Care: Express Care Visit Vital Signs Vital signs: Vital Signs Temperature 97.3 F L 07/20/22 12:12 Pulse Rate 61 07/20/22 12:12 Respiratory Rate 16 07/20/22 12:12 Blood Pressure 117/70 07/20/22 12:12 Pulse Oximetry 99 07/20/22 12:12 Oxygen Delivery Room Air 07/20/22 12:12 Temperature 97.3 F L 07/20/22 12:12 Pulse Rate 61 07/20/22 12:12 Respiratory Rate 16 07/20/22 12:12 Blood Pressure 117/70 07/20/22 12:12 Pulse Oximetry 99 07/20/22 12:12 Oxygen Delivery Room Air 07/20/22 12:12 reviewed MDM - URI/Sore Throat MDM Narrative Medical decision making narrative: Patient is advised we can test for flu, covid, strep; he declines all testing and is requesting z-pack. Patient is informed since his symptoms only started yesterday recommend supportive measures if he does not want to test for anything. He can f/u with pcp regarding abx. Advised supportive measures and signs/symptoms to go to the ER. Pt is appropriate for outpt treatment and f/u. Differential Diagnosis Differential diagnosis: Likely upper respiratory infection, sinusitis, viral infection and influenza Discharge Plan Discharge Clinical Impression: Viral infection Patient Disposition: Home, Self-Care Condition: Stable Instructions: Upper Respiratory Infection (ED) Additional Instructions: Recommend Flonase spray and Zyrtec (or Claritin/Olinda) over the counter Cough syrup may cause drowsiness; avoid driving or take it at night jewels
== END 2022-07-20 12:39 | disposition home or self-care (01) ==
PROVIDERS: Emergency Provider Nurse Practitioner Family; PCP Emergency Medicine
DX: B34.9 Viral infection, unspecified (principal); F17.200 Nicotine dependence, unspecified, uncomplicated
CPT/HCPCS: 99211; G0463

== ENCOUNTER 2022-09-19 16:55 | Emergency (ER) | payer OTHER, SELFPAY ==
[2022-09-19 17:02] VITALS: BP 116/62; PULSE 57; RESP 16; TEMP 36.3; O2SAT 98
[2022-09-19 17:04] VITALS: BP 116/62; PULSE 57; RESP 16; TEMP 36.3; O2SAT 98
--- NOTE | 2022-09-19 17:46 | ED.URI ---
HPI - URI/Sore Throat General Chief Complaint: Upper Respiratory Infection Stated Complaint: uri Time Seen by Provider: 09/19/22 17:46 Source: patient and RN notes reviewed Mode of arrival: ambulatory Limitations: no limitations History of Present Illness HPI Narrative: 37-year-old male presented for complaint of sinus congestion, drainage, sore throat cough for over 1 week. Also reports a sore in the left nostril. He stopped using Flonase when the sore developed. He has been compliant with Olinda. He denies shortness of breath, wheezing, nausea vomiting, fevers or chills. Endorses children are sick with similar symptoms. MD elicited complaint: cough Related Data Home Medications Medication Instructions Recorded Confirmed Flexeril 09/19/22 fexofenadine 180 mg tablet mg 09/19/22 (Allergy Relief (fexofenadine)) hydrocodone-acetaminophen 09/19/22 Allergies Allergy/AdvReac Type Severity Reaction Status Date / Time Penicillins Allergy Severe Swelling Verified 09/19/22 17:03 amoxicillin Allergy Unknown Unknown Verified 09/19/22 17:03 aspirin AdvReac Mild Diarrhea Verified 09/19/22 17:03 prednisone AdvReac Swelling Verified 09/19/22 17:03 of the Eye Review of Systems Review of Systems: CONSTITUTIONAL: Denies malaise, chills, sweats, fever EYES: Denies visual changes, redness, or discharge ENT: Reports rhinorrhea, congestion, sinus pain, sore throat CARDIOVASCULAR: Denies chest pain, palpitations, edema RESPIRATORY: Reports cough, post nasal drainage. Denies dyspnea GASTROINTESTINAL: Denies abdominal pain, nausea, vomiting, diarrhea SKIN: Denies rash or itching MUSCULOSKELETAL: Denies myalgia NEUROLOGIC: Denies headache [facility] Past Medical History Medical History (Updated 09/19/22 @ 17:57 by Irma Christie APRN) History of traumatic brain injury Migraine Surgical History Surgical History History of lumbar fusion Social History Social History Smoking status: Current every day smoker Gender identity (if verbalized by the patient): Male Exam Narrative: GENERAL: mildly Ill-appearing, nontoxic no acute distress. HEAD: Normocephalic EYES: PERRLA, conjunctivae clear ENT: Mucous membranes moist. Left nasal septum with erythematous papule and yellow crust. TMs pearly yin with dull light reflex bilaterally; no tragal tenderness. Oropharynx without lesions or exudate, no drooling, no hoarseness, no trismus, uvula midline. No tripod positioning, muffled voice, soft palate or pharyngeal wall bulging NECK: Supple. No lymphadenopathy CHEST: Clear to auscultation, breath sounds equal. No wheezing, rhonchi, rales, or stridor. No respiratory distress, speaks in full sentences. HEART: Regular rate and rhythm. No murmur heard. SKIN: Warm, dry, no rash. NEURO: Alert and oriented x3. Course Course Emergency Course: Patient is aware of diagnosis, understands and agrees to treatment plan. Anticipatory guidance given. Patient agrees to follow-up as directed and is aware of reasons to seek care at the emergency department. Portions of this record may have been created with voice recognition software Level of Care: Express Care Visit Vital Signs Vital signs: Vital Signs Temperature 97.4 F L 09/19/22 17:02 Pulse Rate 57 L 09/19/22 17:02 Respiratory Rate 16 09/19/22 17:02 Blood Pressure 116/62 09/19/22 17:02 Pulse Oximetry 98 09/19/22 17:02 Oxygen Delivery Room Air 09/19/22 17:02 Temperature 97.4 F L 09/19/22 17:04 Pulse Rate 57 L 09/19/22 17:04 Respiratory Rate 16 09/19/22 17:04 Blood Pressure 116/62 09/19/22 17:04 Pulse Oximetry 98 09/19/22 17:04 Oxygen Delivery Room Air 09/19/22 17:04 reviewed MDM - URI/Sore Throat MDM Narrative Medical decision making narrative: Results of negative COVID test reviewed with patient. Karyna
== END 2022-09-19 17:58 | disposition home or self-care (01) ==
PROVIDERS: Emergency Provider Nurse Practitioner Family; PCP Emergency Medicine
DX: J34.89 Other specified disorders of nose and nasal sinuses (principal); J06.9 Acute upper respiratory infection, unspecified; Z20.822 Contact with and (suspected) exposure to COVID-19; F17.200 Nicotine dependence, unspecified, uncomplicated; Z87.820 Personal history of traumatic brain injury
CPT/HCPCS: 87426; 99213; C9803; G0463

== ENCOUNTER 2022-10-18 09:28 | Emergency (ER) | payer OTHER, SELFPAY ==
[2022-10-18 09:40] VITALS: BP 147/88; PULSE 67; RESP 16; TEMP 36.7; O2SAT 100
--- NOTE | 2022-10-18 10:29 | ED.URI ---
HPI - URI/Sore Throat General Chief Complaint: Upper Respiratory Infection Stated Complaint: Fever/Fatigue/Throat Time Seen by Provider: 10/18/22 10:30 Source: patient, RN notes reviewed and old records reviewed Mode of arrival: ambulatory Limitations: no limitations History of Present Illness HPI Narrative: 37 year old male who presents to [facility] care with complaints of sore throat for the past 2 days with complaints of fever up to 102F and fatigue. Patient reports that he has been taking Tylenol and Ibuprofen for his discomfort and fever. Patient denies any difficulty with his breathing or inability to swallow states is painful to swallow. Patient reports history of seasonal allergies and takes Olinda daily.Patient reports that daughter has been ill recently. MD elicited complaint: fever and sore throat Pertinent past history: seasonal allergies Onset (ago): day(s) (2) Pain scale (0-10): 8 Able to tolerate fluids by mouth: Yes Exacerbating factors: swallowing Treatments prior to arrival: acetaminophen and ibuprofen Related Data Home Medications Medication Instructions Recorded Confirmed Flexeril 09/19/22 fexofenadine 180 mg tablet mg 09/19/22 (Allergy Relief (fexofenadine)) hydrocodone-acetaminophen 09/19/22 ibuprofen 600 mg tablet mg 10/18/22 Allergies Allergy/AdvReac Type Severity Reaction Status Date / Time Penicillins Allergy Severe Swelling Verified 10/18/22 09:59 amoxicillin Allergy Unknown Unknown Verified 10/18/22 09:59 aspirin AdvReac Mild Diarrhea Verified 10/18/22 09:59 prednisone AdvReac Swelling Verified 10/18/22 09:59 of the Eye Review of Systems Review of Systems: CONSTITUTIONAL: Reports fever, chills, or sweats. EYES: Denies visual changes, redness, or discharge. ENT: Denies rhinorrhea, congestion,positive for sore throat, no otalgia. CARDIOVASCULAR: Denies chest pain, palpitations, or edema. RESPIRATORY: Denies cough or dyspnea. GASTROINTESTINAL: Denies abdominal pain, nausea, vomiting, or diarrhea. GENITOURINARY: Denies dysuria or hematuria. SKIN: Denies rash or itching. MUSCULOSKELETAL: History of chronic back pain, joint pain, or myalgia. NEUROLOGIC: Denies headache, numbness, or weakness. PSYCHIATRIC: Denies anxiety or depression. All systems reviewed & are unremarkable except as noted in HPI and below PMFSH Past Medical History Medical History (Updated 10/20/22 @ 08:19 by Alma Delia Stahl NP) Chronic back pain History of traumatic brain injury Migraine Surgical History Surgical History (Updated 10/20/22 @ 08:20 by Alma Delia Stahl NP) H/O inguinal hernia repair History of lumbar fusion History of meniscectomy of left knee Social History Social History (Updated 10/20/22 @ 08:22 by Alma Delia Stahl NP) Smoking status: Former smoker Smoking end date: 06/29/22 Alcohol intake: current Alcohol use details: social Substance use: current Substance use type: opiates Last use: pain control for chronic back pain Living arrangements: with family Gender identity (if verbalized by the patient): Male Comments At time of signature, agree with nursing past medical, surgical, social and family history. There is no relevant family history pertinent to the presenting complaint Exam Narrative: GENERAL: Well-appearing, well-nourished, and in no acute distress. HEAD: Normocephalic, atraumatic. EYES: PERRLA and EOMI. ENT: Nares clear, no rhinorrhea or epistaxis. Mucous membranes moist. TM's normal, throat red with swollen tonsils and painful swallowing NECK: Supple. lymphadenopathy CHEST: Clear to auscultation. No respiratory distress. SAO2 100% on room air HEART: Regular rate and rhythm. No murmur heard. Normal peripheral pulses. ABDOMEN: Soft, nontender, nondistended, normal active bowel sounds. EXTREMITIES: Normal range of motion. No edema. SKIN: Warm, dry, no rash. NEURO: No focal deficits. Alert and oriented x3. Course Course Emergency
== END 2022-10-18 10:45 | disposition home or self-care (01) ==
PROVIDERS: Emergency Provider Registered Nurse; PCP Emergency Medicine
DX: J03.90 Acute tonsillitis, unspecified (principal); Z87.891 Personal history of nicotine dependence
CPT/HCPCS: 87081; 87880; 99213; G0463

== ENCOUNTER 2022-12-17 11:23 | Emergency (ER) | payer OTHER, SELFPAY ==
--- NOTE | ~2022-12-17 | CT_ITS ---
Non-contrast Head CT History: Dizziness COMPARISON: 04/08/2019 Technique: Axial non-contrast imaging of the brain was performed. Dose reduction technique was used on this scan by utilizing automated exposure control and iterative reconstruction technique. The dose -length product (DLP) was 605.33 mGy-cm. Findings: There is no evidence of intracranial hemorrhage, mass lesion, or acute infarct. Brain par enchyma appears normal. The ventricles and subarachnoid spaces are normal in size. The calvarium ap pears normal. The visualized paranasal sinuses and mastoid air cells are clear. Impression: No significant abnormality seen. Reviewed, dictated and finalized at location . Impression: No significant abnormality seen.
[2022-12-17 11:25] VITALS: BP 143/96; PULSE 78; RESP 18; TEMP 36.4; O2SAT 98
--- NOTE | 2022-12-17 11:35 | ECG_ITS ---
Measurements Intervals [place] Rate: 56 P: 34 FL: 155 QRS: 9 QRSD: 103 T: 5 QT: 435 QTc: 422 Interpretive Statements SINUS BRADYCARDIA DELAYED PRECORDIAL R/S TRANSITION BORDERLINE T WAVE ABNORMALITY- INFERIOR LEADS BORDERLINE ECG NO PREVIOUS ECG AVAILABLE FOR COMPARISON Electronically Signed On 12-17-2022 11:57:38 CDT by Venkatesh Hills D.O.
[2022-12-17 11:58] LABS: Basophils Percent Auto 0.7 % (0.2-1.2); Eosinophils Absolute Auto 0.2 K/mm3 (0-0.3); Hematocrit 40.8 % (42.0-52.0); Hemoglobin 13.9 g/dL (14.0-18.0); Immature Granulocyte Absolute 0.01 K/mm3 (0.00-0.031); Immature Granulocyte Percent A 0.2 % (0-0.5); Lymphocytes Absolute Auto 1.97 K/mm3 (0.9-3.2); Lymphocytes Percent Auto 36.8 % (18.3-44.2); Mean Corpuscular HGB Conc 34.1 g/dl (32-36); Mean Corpuscular Hemoglobin 30.5 pg (26-34); Mean Corpuscular Volume 89.5 fl (80-100); Mean Platelet Volume 9.8 fl (7.4-10.4); Monocytes Absolute Auto 0.4 K/mm3 (0.1-0.6); Monocytes Percent Auto 7.5 % (2.6-8.5); Neutrophils Absolute Auto 2.8 K/mm3 (1.3-6.7); Neutrophils Percent Auto 51.8 % (45.5-73.1); Platelet Count Result 241 k/mm3 (150-375); Red Blood Count 4.56 M/mm3 (4.6-6.20); Red Cell Distribution Width 12.4 % (11.5-14.5); White Blood Count 5.4 K/mm3 (4.5-10.0)
[2022-12-17 12:08] LABS: Alanine Aminotransferase 31 U/L (6-50); Albumin Level 3.9 g/dL (3.5-5.1); Alkaline Phosphatase 66 U/L (38-126); Anion Gap 9 mmol/L (8-16); Aspartate Amino Transferase 29 U/L (17-59); Bilirubin,Total 0.5 mg/dL (0.2-1.3); Blood Urea Nitrogen 11 mg/dL (9-20); Calcium 8.4 mg/dL (8.4-10.2); Carbon Dioxide 26 mmol/L (22-30); Chloride 103 mmol/L (98-107); Estimated CRCL calculation 88 ml/min; Estimated Glomerular Filt Rate > 60; Glucose 131 mg/dL (65-110); Potassium 3.6 mmol/L (3.4-5.0); Sodium 138 mmol/L (137-145)
[2022-12-17 12:10] LABS: INR 0.9; Prothrombin Time 12.2 Seconds (11.1-14.7)
[2022-12-17 12:11] LABS: Partial Thromboplastin Time 27.8 SECONDS (22.3-36.8)
[2022-12-17 12:20] LABS: Troponin I < 0.012 ng/mL (0.000-0.034)
[2022-12-17] MEDS: MECLIZINE HCL 25 MG TABLET PO (13:56)
[2022-12-17 15:25] VITALS: BP 138/98; PULSE 59; RESP 14; O2SAT 100
--- NOTE | 2022-12-17 15:31 | ED.GENADULT ---
HPI - General Adult General Chief complaint: Back Pain/Injury Stated complaint: pain between shoulder blades Time Seen by Provider: 12/17/22 13:28 History of Present Illness HPI narrative: Yeyo Marvin is a 37 y/o male who presents today with reports of getting dizzy spells off and on that started 6 days ago. He does not know what brings the symptoms on, he reports it never lasts very long. He reports it seems to improve on its own. He denies any chest pain/ palpitations/ vision changes/ headache / shortness of breath. Denies any recent trauma/fall. Yeyo then adds that he has had some muscle back pain that he typically has but he thinks it was acting up earlier but not at this time, no flank pain. Related Data Home Medications Medication Instructions Recorded Confirmed Flexeril 09/19/22 fexofenadine 180 mg tablet mg 09/19/22 (Allergy Relief (fexofenadine)) hydrocodone-acetaminophen 09/19/22 ibuprofen 600 mg tablet mg 10/18/22 Allergies Allergy/AdvReac Type Severity Reaction Status Date / Time Penicillins Allergy Severe Swelling Verified 12/17/22 11:24 amoxicillin Allergy Unknown Unknown Verified 12/17/22 11:24 aspirin AdvReac Mild Diarrhea Verified 12/17/22 11:24 prednisone AdvReac Swelling Verified 12/17/22 11:24 of the Eye Review of Systems Review of Systems: CONSTITUTIONAL: Denies fever, chills, or sweats. EYES: Denies visual changes, redness, or discharge. ENT: Denies rhinorrhea, congestion, sore throat, or otalgia. CARDIOVASCULAR: Denies chest pain, palpitations, or edema. RESPIRATORY: Denies cough or dyspnea. GASTROINTESTINAL: Denies abdominal pain, nausea, vomiting, or diarrhea. GENITOURINARY: Denies dysuria or hematuria. SKIN: Denies rash or itching. MUSCULOSKELETAL: Denies back pain, joint pain, or myalgia. NEUROLOGIC: Denies headache, numbness, dizziness, or weakness. PSYCHIATRIC: Denies anxiety or depression. [facility] Past Medical History Medical History Chronic back pain History of traumatic brain injury Migraine Surgical History Surgical History H/O inguinal hernia repair History of lumbar fusion History of meniscectomy of left knee Social History Social History Smoking status: Former smoker Smoking end date: 06/29/22 Alcohol intake: current Alcohol use details: social Substance use: current Substance use type: opiates Last use: pain control for chronic back pain Living arrangements: with family Gender identity (if verbalized by the patient): Male Exam Narrative: GENERAL: Well-appearing, well-nourished, and in no acute distress. HEAD: Normocephalic, atraumatic. EYES: PERRLA and EOMI. ENT: Nares clear, no rhinorrhea or epistaxis. Mucous membranes moist. Oropharynx without tonsillar hypertrophy exudate or other lesions. NECK: Supple. No adenopathy or masses. No carotid bruits or JVD CHEST: Clear to auscultation. No respiratory distress. No wheezes rales or rhonchi HEART: Regular rate and rhythm. No murmur heard. Normal peripheral pulses. ABDOMEN: Soft, nontender, nondistended, normal active bowel sounds. EXTREMITIES: Normal range of motion. No edema. SKIN: Warm, dry, no rash. NEURO: No focal deficits. Alert and oriented x3. PSYCH: Normal mood and affect. Course Vital Signs Vital signs: Vital Signs Temperature 36.4 C 12/17/22 11:25 Pulse Rate 78 12/17/22 11:25 Respiratory Rate 18 12/17/22 11:25 Blood Pressure 143/96 H 12/17/22 11:25 Pulse Oximetry 98 12/17/22 11:25 Oxygen Delivery Room Air 12/17/22 11:25 Temperature 36.4 C 12/17/22 11:25 Pulse Rate 59 L 12/17/22 15:25 Respiratory Rate 14 12/17/22 15:25 Blood Pressure 138/98 H 12/17/22 15:25 Pulse Oximetry 100 12/17/22 15:25 Oxygen Delivery Room Air 12/17/22 11:25 Medical Decision Piyush
== END 2022-12-17 16:00 | disposition home or self-care (01) ==
PROVIDERS: General Practice; Emergency Provider Nurse Practitioner Family; PCP Emergency Medicine
DX: H66.91 Otitis media, unspecified, right ear (principal); M54.9 Dorsalgia, unspecified; G89.29 Other chronic pain; Z87.820 Personal history of traumatic brain injury; Z98.1 Arthrodesis status; R00.1 Bradycardia, unspecified; R94.31 Abnormal electrocardiogram [ECG] [EKG]
CPT/HCPCS: 36415; 70450; 80053; 84484; 85025; 85610; 85730; 93005; 99284; A9270

== ENCOUNTER 2022-12-19 19:51 | Emergency (ER) | payer OTHER, SELFPAY ==
--- NOTE | ~2022-12-19 | CT_ITS ---
EXAMINATION: CTA brain carotid DATE: 12/20/2022 05:20 INDICATION: left neck pain status post neck crack TECHNIQUE: Computed tomographic angiography (CTA) of the head was performed without and with 100 mL O mnipaque-350 intravenous contrast. CTA of the neck was performed with intravenous contrast. Automated exposure control and iterative reconstruction technique were employed. The dose-length product was 1 726.21 mGy-cm. Maximum intensity projection and volume rendered 3D-reconstructions were created by ana rowe technologist on a separate workstation. COMPARISON: CT brain 12/17/2022; CTA brain carotid 04/08/2019 FINDINGS: CT BRAIN: No acute large vessel infarct, intracranial hemorrhage, mass, or hydrocephalus. CTA HEAD: No large vessel occlusion, aneurysm, high flow vascular malformation, nidus or extravasation. The rig ht LYNSEY is supplied by the left circulation via the anterior communicating artery. CTA NECK: Aortic arch and proximal great vessels: No plaque. Normal arch anatomy. Right common carotid, carotid bifurcation, and internal carotid artery: No plaque.There is 0% stenosi s of the proximal right internal carotid artery relative to normal distal artery lumen diameter (NASC ET criteria). Left common carotid, carotid bifurcation, and internal carotid artery: No plaque.There is 0% stenosis of the proximal left internal carotid artery relative to normal distal artery lumen diameter (NASCET criteria). Vertebral arteries: No significant plaque or stenosis. Right vertebral artery is dominant, Other findings: None. IMPRESSION: No acute intracranial process. No large vessel occlusion. No significant carotid or vertebral stenosis, dissection, or aneurysm. Reviewed, dictated and finalized at location K. IMPRESSION: No acute intracranial process. No large vessel occlusion. No significant carotid or vertebral stenosis, dissec tion, or aneurysm.
[2022-12-19 21:08] VITALS: BP 140/84; PULSE 62; RESP 15; TEMP 36.5; O2SAT 100
[2022-12-20] VITALS (23 sets, daily range): BP systolic 118–151; BP diastolic 73–97; PULSE 54–93; RESP 12–18; TEMP 36.4; O2SAT 96–100
[2022-12-20 04:10] LABS: Basophils Absolute Auto 0.1 K/mm3 (0.0-0.1); Basophils Percent Auto 0.9 % (0.2-1.2); Eosinophils Absolute Auto 0.3 K/mm3 (0-0.3); Eosinophils Percent Auto 3.4 % (0-4.4); Hematocrit 45.2 % (42.0-52.0); Hemoglobin 14.9 g/dL (14.0-18.0); Immature Granulocyte Absolute 0.02 K/mm3 (0.00-0.031); Immature Granulocyte Percent A 0.2 % (0-0.5); Lymphocytes Absolute Auto 2.74 K/mm3 (0.9-3.2); Lymphocytes Percent Auto 33.3 % (18.3-44.2); Mean Corpuscular Hemoglobin 29.8 pg (26-34); Mean Corpuscular Volume 90.4 fl (80-100); Mean Platelet Volume 10.4 fl (7.4-10.4); Monocytes Absolute Auto 0.9 K/mm3 (0.1-0.6); Monocytes Percent Auto 11.1 % (2.6-8.5); Neutrophils Absolute Auto 4.2 K/mm3 (1.3-6.7); Neutrophils Percent Auto 51.1 % (45.5-73.1); Platelet Count Result 247 k/mm3 (150-375); Red Cell Distribution Width 12.4 % (11.5-14.5); White Blood Count 8.2 K/mm3 (4.5-10.0)
[2022-12-20 04:23] LABS: INR 0.9; Partial Thromboplastin Time 25.8 SECONDS (22.3-36.8); Prothrombin Time 12.8 Seconds (11.1-14.7)
[2022-12-20 04:43] LABS: Alanine Aminotransferase 34 U/L (6-50); Albumin Level 4.2 g/dL (3.5-5.1); Alkaline Phosphatase 67 U/L (38-126); Anion Gap 7 mmol/L (8-16); Aspartate Amino Transferase 32 U/L (17-59); Bilirubin,Total 0.6 mg/dL (0.2-1.3); Blood Urea Nitrogen 11 mg/dL (9-20); Calcium 8.8 mg/dL (8.4-10.2); Carbon Dioxide 30 mmol/L (22-30); Chloride 100 mmol/L (98-107); Estimated CRCL calculation 87 ml/min; Estimated Glomerular Filt Rate > 60; Glucose 91 mg/dL (65-110); Potassium 3.9 mmol/L (3.4-5.0); Sodium 137 mmol/L (137-145)
[2022-12-20] MEDS: SODIUM CHLORIDE 0.9% IV 1,000 ML 999 ML IV CONT (05:36)
[2022-12-20] MEDS: diphenhydrAMINE HCl INJ 50 MG/ML VIAL IV PUSH (05:37)
[2022-12-20] MEDS: PROCHLORPERAZINE EDISYLATE 10 MG/2 ML VIAL IV PUSH (05:37)
--- NOTE | 2022-12-20 06:35 | ED.GENADULT ---
HPI - General Adult General Chief complaint: Dizziness <Anthony Patel MD - Last Filed: 12/20/22 06:37> Stated complaint: DIZZINESS,NECK TIGHT X 1WEEK <Anthony Patel MD - Last Filed: 12/20/22 06:37> Time Seen by Provider: 12/20/22 03:20 <Anthony Patel MD - Last Filed: 12/20/22 06:37> History of Present Illness HPI narrative: Patient 37-year-old gentleman who presents emerged department with chief complaint of neck pain and dizziness patient reports he was recently diagnosed with an ear infection and vertigo but reports that this originally started whenever he took a shower got out of the shower turned his head and his neck crack patient reports that since then he has had pain shooting up his neck on the left side up into the back of his head patient reports that he has had no weakness in his arms or legs but reports the pain in his head has become intense and he is concerned that there may be something else wrong. The patient reports no difficulty swallowing reports no changes in his hearing reports that he has been compliant with the antibiotics that were prescribed for him <Anthony Patel MD - Last Filed: 12/20/22 06:37> Related Data Home medications: Home Medications Medication Instructions Recorded Confirmed Flexeril 09/19/22 fexofenadine 180 mg tablet mg 09/19/22 (Allergy Relief (fexofenadine)) hydrocodone-acetaminophen 09/19/22 ibuprofen 600 mg tablet mg 10/18/22 <Anthony Patel MD - Last Filed: 12/20/22 06:37> Allergies/adverse reactions: Allergies Allergy/AdvReac Type Severity Reaction Status Date / Time Penicillins Allergy Severe Swelling Verified 12/20/22 07:53 amoxicillin Allergy Unknown Unknown Verified 12/20/22 07:53 aspirin AdvReac Mild Diarrhea Verified 12/20/22 07:53 prednisone AdvReac Swelling Verified 12/20/22 07:53 of the Eye <Anthony Patel MD - Last Filed: 12/20/22 06:37> Review of Systems Review of Systems: A 10 system review of systems was completed on the patient and is negative except for what is stated in the HPI. Nursing and ancillary documentation was reviewed. <Anthony Patel MD - Last Filed: 12/20/22 06:37> PMFSH Past Medical History Medical History: Medical History Chronic back pain History of traumatic brain injury Migraine <Anthony Patel MD - Last Filed: 12/20/22 06:37> Surgical History Surgical History: Surgical History H/O inguinal hernia repair History of lumbar fusion History of meniscectomy of left knee <Anthony Patel MD - Last Filed: 12/20/22 06:37> Social History Social History: Social History Smoking status: Former smoker Smoking end date: 06/29/22 Alcohol intake: current Alcohol use details: social Substance use: current Substance use type: opiates Last use: pain control for chronic back pain Living arrangements: with family Gender identity (if verbalized by the patient): Male <Anthony Patel MD - Last Filed: 12/20/22 06:37> Exam Narrative: GENERAL: Well-appearing, well-nourished, and in no acute distress. HEAD: Normocephalic, atraumatic. EYES: PERRLA and EOMI. ENT: Nares clear, no rhinorrhea or epistaxis. Mucous membranes moist. NECK: Supple. Tenderness to palpation in the left side of the neck CHEST: Clear to auscultation. No respiratory distress. HEART: Regular rate and rhythm. No murmur heard. Normal peripheral pulses. ABDOMEN: Soft, nontender, nondistended, normal active bowel sounds. EXTREMITIES: Normal range of motion. No edema. SKIN: Warm, dry, no rash. NEURO: No focal deficits. Alert and oriented x3. PSYCH: Normal mood and affect. <Anthony Patel MD - L
== END 2022-12-20 09:43 | disposition home or self-care (01) ==
PROVIDERS: Emergency Medicine; Emergency Provider Emergency Medicine; PCP Emergency Medicine
DX: M54.2 Cervicalgia (principal); Z87.820 Personal history of traumatic brain injury; Z87.891 Personal history of nicotine dependence; Z98.1 Arthrodesis status
CPT/HCPCS: 36415; 70496; 70498; 80053; 85025; 85610; 85730; 96361; 96374; 96375; 99284; J0780; J1200; J7030; Q9967

== ENCOUNTER 2023-01-09 20:25 | Emergency (ER) | payer OTHER, SELFPAY ==
[2023-01-09 20:26] VITALS: BP 158/83; PULSE 73; RESP 18; TEMP 36.2; O2SAT 99
--- NOTE | 2023-01-09 21:44 | ED.DENTAL ---
HPI - Dental/Oral General Chief complaint: Dental/Oral Stated complaint: toothache Time Seen by Provider: 01/09/23 20:37 Source: patient Mode of arrival: ambulatory Limitations: no limitations History of Present Illness HPI Narrative: This is a 37 year old male that presents to the ER for toothache present over the last 5 days. Reports he has been taking clindamycin without relief. He has an appointment to see a dentist, but it is not until another week from now. Reports pain and swelling in the area. Denies fevers. Complaint: tooth pain Location: Tooth # (18) Related Data Home Medications Medication Instructions Recorded Confirmed clindamycin HCl 150 mg capsule mg 01/09/23 Allergies Allergy/AdvReac Type Severity Reaction Status Date / Time Penicillins Allergy Severe Swelling Verified 01/09/23 20:49 amoxicillin Allergy Unknown Unknown Verified 01/09/23 20:49 aspirin AdvReac Mild Diarrhea Verified 01/09/23 20:49 prednisone AdvReac Swelling Verified 01/09/23 20:49 of the Eye Review of Systems Review of Systems: CONSTITUTIONAL: Denies fever ENT: Reports dentalgia All systems reviewed & are unremarkable except as noted in HPI and below PMFSH Past Medical History Medical History Chronic back pain History of traumatic brain injury Migraine Surgical History Surgical History H/O inguinal hernia repair History of lumbar fusion History of meniscectomy of left knee Social History Social History Smoking status: Former smoker Smoking end date: 06/29/22 Alcohol intake: current Alcohol use details: social Substance use: current Substance use type: opiates Last use: pain control for chronic back pain Living arrangements: with family Gender identity (if verbalized by the patient): Male Exam Narrative: GENERAL: Well-appearing, well-nourished, and in no acute distress. HEAD: Normocephalic, atraumatic. EYES: EOMI. ENT: Nares clear, no rhinorrhea or epistaxis. Mucous membranes moist. Oropharynx without tonsillar hypertrophy exudate or other lesions. Tooth #18 is fractured with surrounding erythema and edema, no fluctuance to suggest abscess. No trismus. Floor of mouth is soft NECK: Supple. No adenopathy or masses. CHEST: Clear to auscultation. No respiratory distress. No wheezes rales or rhonchi HEART: Regular rate and rhythm. No murmur heard. Normal peripheral pulses. EXTREMITIES: Normal range of motion. No edema. SKIN: Warm, dry, no rash. NEURO: No focal deficits. Alert and oriented x3. PSYCH: Normal mood and affect Course Course Emergency Course: Patient agrees with plan of care Vital Signs Vital signs: Vital Signs Temperature 97.2 F L 01/09/23 20:26 Pulse Rate 73 01/09/23 20:26 Respiratory Rate 18 01/09/23 20:26 Blood Pressure 158/83 H 01/09/23 20:26 Pulse Oximetry 99 01/09/23 20:26 Oxygen Delivery Room Air 01/09/23 20:26 Temperature 97.2 F L 01/09/23 20:26 Pulse Rate 73 01/09/23 20:26 Respiratory Rate 18 01/09/23 20:26 Blood Pressure 158/83 H 01/09/23 20:26 Pulse Oximetry 99 01/09/23 20:26 Oxygen Delivery Room Air 01/09/23 20:26 MDM - Dental/Oral MDM Narrative Medical decision making narrative: Patient presents to the emergency department for dentalgia present over the last 5 days. He has been taking clindamycin, but only 3 times daily. Will increase to 4 times daily and extend his antibiotics until he is able to see his dentist. There is redness and swelling of the area, but no fluctuance to suggest a focal abscess at this time. He is afebrile and nontoxic-appearing. No trismus on exam. Patient will be prescribed a short course of pain medication. He is to follow-up with his dentist. He was given warnings to return to the
== END 2023-01-09 21:58 | disposition home or self-care (01) ==
PROVIDERS: Emergency Provider Physician Assistant; PCP Emergency Medicine
DX: K08.89 Other specified disorders of teeth and supporting structures (principal); Z87.820 Personal history of traumatic brain injury; Z87.891 Personal history of nicotine dependence; Z98.1 Arthrodesis status
CPT/HCPCS: 99283

== ENCOUNTER → 2023-03-23 14:00 | Outpatient (CLI) | payer OTHER, SELFPAY ==
--- NOTE | ~2023-03-23 | XR_ITS ---
EXAMINATION: XR chest 2V 03/23/2023 14:19 INDICATION: Productive cough. PROCEDURE: 2 view chest COMPARISON: Comparison to multiple prior studies sequentially, with oldest reviewed study dated 01/01. FINDINGS: The lungs are clear. The cardiomediastinal silhouette is within normal limits. There are no pleural effusions. There is no pneumothorax suspected. IMPRESSION: 1: NO ACUTE CARDIOPULMONARY DISEASE. Reviewed, dictated and finalized at location A.
== END ==
PROVIDERS: PCP Emergency Medicine; Visit Provider Emergency Medicine
DX: R05.9 Cough, unspecified (principal); Z87.891 Personal history of nicotine dependence
CPT/HCPCS: 71046

== ENCOUNTER 2023-12-06 20:25 | Emergency (ER) | payer OTHER, SELFPAY ==
[2023-12-06 20:31] VITALS: BP 138/90; PULSE 70; RESP 20; TEMP 36.3; O2SAT 100
--- NOTE | 2023-12-06 23:57 | ED.EYEPROB ---
HPI - Eye Problem General Chief complaint: Eye Problems Stated complaint: L eye redness/pain Time Seen by Provider: 12/06/23 23:35 History of Present Illness HPI Narrative: 38-year-old male presents to the emergency department for a red, itchy and painful eye since yesterday. patient states a couple days ago he was working on his car and got dirt in his eye. Yesterday he was walking in a field and felt something fly into his eye. States yesterday his eye was somewhat irritating him but he woke up this morning with a red and painful eye. He states it has been draining yellow and white drainage in you woke up with his eye matted shut. He does wear contacts but removed his contacts this morning. He is unsure if he has any vision changes because everything is blurry secondary to removing his contact. He denies pain with EOMs, fever. States he is established with [facility]. Related Data Home Medications Medication Instructions Recorded Confirmed clindamycin HCl 150 mg capsule mg 01/09/23 Allergies Allergy/AdvReac Type Severity Reaction Status Date / Time Penicillins Allergy Severe Swelling Verified 12/06/23 22:47 amoxicillin Allergy Unknown Unknown Verified 12/06/23 22:47 aspirin AdvReac Mild Diarrhea Verified 12/06/23 22:47 prednisone AdvReac Swelling Verified 12/06/23 22:47 of the Eye Review of Systems Review of Systems: All systems reviewed & are unremarkable except as noted in HPI and below PMFSH Past Medical History Medical History Chronic back pain History of traumatic brain injury Migraine Surgical History Surgical History H/O inguinal hernia repair History of lumbar fusion History of meniscectomy of left knee Social History Social History Smoking status: Former smoker Smoking end date: 06/29/22 Alcohol intake: current Alcohol use details: social Substance use: current Substance use type: opiates Last use: pain control for chronic back pain Living arrangements: with family Gender identity (if verbalized by the patient): Male Exam Narrative: GENERAL: Well-appearing, well-nourished, and in no acute distress. HEAD: Normocephalic, atraumatic. EYES: PERRLA and EOMI. Left eye injected with erythematous conjunctiva. No proptosis or chemosis. Fluorescein staining shows less than 1 mm circular area of uptake around the 7 o'clock position. There is no foreign bodies or rust rings. Peripheral vision intact. No pain with EOMs. Pressure 23 mmHg to the L eye. ENT: Nares clear, no rhinorrhea or epistaxis. Mucous membranes moist. NECK: Supple. EXTREMITIES: Normal range of motion. No edema. SKIN: Warm, dry, no rash. NEURO: No focal deficits. Alert and oriented x3 Course Vital Signs Vital signs: Vital Signs Temperature 97.4 F L 12/06/23 20:31 Pulse Rate 70 12/06/23 20:31 Respiratory Rate 20 12/06/23 20:31 Blood Pressure 138/90 12/06/23 20:31 Pulse Oximetry 100 12/06/23 20:31 Temperature 97.4 F L 12/06/23 20:31 Pulse Rate 70 12/06/23 20:31 Respiratory Rate 20 12/06/23 20:31 Blood Pressure 138/90 12/06/23 20:31 Pulse Oximetry 100 12/06/23 20:31 MDM - Eye Problem MDM Narrative Medical decision making narrative: 38-year-old male presents to emergency department for painful and red eye for 1 day. See HPI for further history. Triage vital stable. Exam is significant for the above. Specifically his left left eye is erythematous and injected. Pressures are minimally elevated but not consistent with Acute angle closure glaucoma. Visual acuity is poor in the left eye but he did remove his contacts. Forcing staining shows a very small amount of uptake near the 7 o'clock position , possible abrasion versus corneal ulcer, seems most consistent with ulcer o
[2023-12-06] MEDS: FLUORESCEIN SOD 1 MG/STRIP EACH EYE (23:58)
[2023-12-06] MEDS: TETRACAINE HCL 0.5% OPHTH SOLN 4 ML BTL 1 DROP EACH EYE (23:58)
[2023-12-07] MEDS: MOXIFLOXACIN HCL 0.5% 3 ML OPHTH SOLN 1 DROP LEFT EYE (00:24)
[2023-12-07 00:28] VITALS: BP 137/78; PULSE 72; RESP 14; O2SAT 96
== END 2023-12-07 00:29 | disposition home or self-care (01) ==
PROVIDERS: Emergency Provider Physician Assistant; PCP Emergency Medicine
DX: H10.32 Unspecified acute conjunctivitis, left eye (principal); H16.002 Unspecified corneal ulcer, left eye; Z98.1 Arthrodesis status; Z87.820 Personal history of traumatic brain injury; Z87.891 Personal history of nicotine dependence
CPT/HCPCS: 99283; A9270

== ENCOUNTER 2024-09-07 09:29 | Emergency (ER) | payer OTHER, SELFPAY ==
[2024-09-07 09:37] VITALS: BP 123/72; PULSE 76; RESP 20; TEMP 36.6; O2SAT 99
--- NOTE | 2024-09-07 10:30 | ED_ITS ---
HPI - URI/Sore Throat General Chief Complaint: Upper Respiratory Infection Stated Complaint: Sinus Time Seen by Provider: 09/07/24 09:46 Source: patient and RN notes reviewed Mode of arrival: ambulatory Limitations: no limitations History of Present Illness HPI Narrative: Patient presents today complaining of nasal congestion and productive cough for the last 6 hours. Denies fever, shortness of breath. Denies known sick contacts. He took a dose of Sudafed last night, which provided him with some mild relief. Also took a few puffs of his albuterol inhaler, but states that is now empty. Reports history of seasonal allergies for which she normally takes Zyrtec. He has not taken an antihistamine yet this season. Related Data Allergies Allergy/AdvReac Type Severity Reaction Status Date / Time Penicillins Allergy Severe Swelling Verified 09/07/24 09:37 amoxicillin Allergy Unknown Unknown Verified 09/07/24 09:37 aspirin AdvReac Mild Diarrhea Verified 09/07/24 09:37 prednisone AdvReac Swelling Verified 09/07/24 09:37 of the Eye Review of Systems Review of Systems: CONSTITUTIONAL: Denies body aches, fever, chills, or sweats. EYES: Denies visual changes, redness, or discharge. ENT: Denies rhinorrhea,sore throat, or otalgia.+ congestion CARDIOVASCULAR: Denies chest pain, palpitations, or edema. RESPIRATORY: Denies dyspnea.+ cough GASTROINTESTINAL: Denies abdominal pain, nausea, vomiting, or diarrhea. GENITOURINARY: Denies dysuria or hematuria. SKIN: Denies rash, itching, or wounds. MUSCULOSKELETAL: Denies back pain, joint pain, or myalgia. NEUROLOGIC: Denies headache, numbness, tingling, or weakness. PSYCH: Denies depression or anxiety. [facility] Past Medical History Medical History Chronic back pain Migraine History of traumatic brain injury Surgical History Surgical History H/O inguinal hernia repair History of meniscectomy of left knee History of lumbar fusion Social History Social History Smoking status: Former smoker Smoking end date: 06/29/22 Alcohol intake: current Alcohol use details: social Substance use: current Substance use type: opiates Last use: pain control for chronic back pain Living arrangements: with family Gender identity (if verbalized by the patient): Male Comments At time of signature, I have reviewed and agree with nursing past medical, surgical, social and family history unless otherwise noted. Please see nursing chart for further information. There is no relevant family history pertinent to the presenting complaint Exam Narrative: GENERAL: Well-appearing, well-nourished, and in no acute distress. HEAD: Normocephalic, atraumatic. EYES: EOMI. No redness or drainage. Conjunctivae normal. ENT: Mucous membranes pink and moist. Nares mildly congested. No rhinorrhea. TMs normal bilaterally. Throat normal. Uvula midline. NECK: Normal AROM. Supple. No lymphadenopathy. CHEST: No respiratory distress. Clear to auscultation. HEART: Regular rate and rhythm. No murmur appreciated. EXTREMITIES: Normal range of motion. No edema. SKIN: Warm, dry, no rash. Capillary refill normal. Normal skin turgor. NEURO: No focal deficits. Alert and oriented x3. Gait steady. PSYCH: Normal affect. No signs of depression or anxiety. Course Course Level of Care: Express Care Visit Vital Signs Vital signs: Vital Signs Temperature 97.9 F 09/07/24 09:37 Pulse Rate 76 09/07/24 09:37 Respiratory Rate 20 09/07/24 09:37 Blood Pressure 123/72 09/07/24 09:37 Pulse Oximetry 99 09/07/24 09:37 Oxygen Delivery Room Air 09/07/24 09:37 Temperature 97.9 F 09/07/24 09:37 Pulse Rate 76 09/07/24 09:37 Respiratory Rate 20 09/07/24 09:37 Blood Pressure 123/72 09/07/24 09:37 Pulse Oximetry 99 09/07/24 09:37 Oxygen Delivery Room Air 09/07/24 09:37 Reviewed MDM - URI/Sore Throat MDM Narrative Medical decision making narrative: Patient's symptoms are allergic rhinitis versus viral illness. Recommend starting an antihistamine and patient states he would like to try Xyzal. Also recommend starting some Flonase. Will refill his albuterol inhaler. Anticipatory guidance given. Differential Diagnosis Differential diagnosis: Likely upper respiratory infection, sinusitis, viral infection and other (Rhinitis, seasonal allergies) Critical Care Time Critical Care Time Critical Care Time: No Discharge Plan Discharge Clinical Impression: Allergic rhinitis Qualifiers: Allergic rhinitis trigger: other Allergic rhinitis seasonality: seasonal Qualified Code(s): J30.89 - Other allergic rhinitis Patient Disposition: Home Condition: Stable Instructions: Allergies (ED) Additional Instructions: Your symptoms are likely due to allergies. Please start an antihistamine such as Zyrtec, Claritin, Olinda, or Xyzal. You may also consider an intranasal steroid such as Flonase. Use your albuterol inhaler as needed. Follow-up with your PCP with any concerns. Go to the ER immediately with worsening symptoms such as fever greater than 100.3 or shortness of breath. Your blood pressure was elevated above 120/80 today at Urgent Care. This puts you above the threshold for follow up. Please schedule a followup visit with your personal physician as soon as possible, for further evaluation and treatment. Even blood pressure exceeding 120/80 may indicate pre-hypertension. Patient Language: Faroese Prescriptions: New albuterol sulfate 90 mcg/actuation HFA aerosol inhaler 2 inh inhalation Q4-6H PRN (Reason: shortness of breath or wheezing) Qty: 8.5 0RF Follow-up/Referrals: Bill Carrington MD [Primary Care Provider] - Time of Disposition: 09:54
== END 2024-09-07 10:00 | disposition home or self-care (01) ==
PROVIDERS: Emergency Provider Nurse Practitioner; PCP Emergency Medicine
DX: J30.89 Other allergic rhinitis (principal); Z87.891 Personal history of nicotine dependence; Z87.820 Personal history of traumatic brain injury
CPT/HCPCS: 99213; G0463

== ENCOUNTER 2024-10-19 14:51 | Emergency (ER) | payer OTHER, SELFPAY ==
--- NOTE | ~2024-10-19 | CT_ITS ---
CT abdomen pelvis w con Ordering provider: Jose Shaikh MD History: 39 years Male with . lower abd pain R>L . Comparison: None. Technique: CT abdomen and pelvis with IV and without oral contrast. Automated exposure control and it erative reconstruction technique were employed. The dose-length product was 974.39 mGy-cm. 100 mL Omn ipaque 350 was given IV. Findings: VISUALIZED LOWER CHEST: Dependent atelectatic changes.. UPPER ABDOMINAL ORGANS: Liver: Fat infiltration. Gallbladder: Normal. Spleen: Normal. Stomach/duodenum: Normal. Pancreas: Normal. Adrenals: Normal. Kidneys: Normal. PELVIC ORGANS: The bladder is normal. BOWEL AND MESENTERY: Colon: Mild sigmoid diverticulosis without diverticulitis. Normal appendix. Small Bowel: Normal. No obstruction. Peritoneum/mesentery: No free air or free fluid. No mesenteric lymphadenopathy. RETROPERITONEUM: Mild atheromatous disease of the abdominal aorta. No retroperitoneal lymphadenopat hy. MUSCULOSKELETAL: Superficial soft tissues: The superficial soft tissues are normal. Bones: Age appropriate degenerative changes of the spine. Disc spacers seen at the level of L5-S1. IMPRESSION: 1. No evidence of appendicitis, diverticulitis or intestinal obstruction. 2. Fat infiltration of the liver. Reviewed, dictated and finalized at location A.
--- OUTSIDE RECORDS SUMMARY | 2024-10-19 14:58 | XMS_ITS | Clinical Summary ---
Author Organization [facility] daugherty [facility] Address [address] [place] [address] Care Team Providers Care [employer] W[employer] Operator Name Role Phone Bill Carrington MD Primary Care Provider [phone] Allergies Active Allergy Reactions Criticality Noted Date Comments Penicillins Anaphylaxis High 03/11/2021 Medications clindamycin (CLEOCIN) 150 mg capsule Take 150 mg by mouth 4 times daily. 2 Every 6 hrs Active HYDROcodone-acet aminophen (NORCO) 5-325 mg tablet Take 1 Tablet by mouth every 4 hours as needed for Pain, Moderate. Active cyclobenzaprine (FLEXERIL) 10 mg tablet Take 10 mg by mouth 3 times daily as needed for Spasm. Active cetirizine (ZyrTEC) 10 mg tablet Take 10 mg by mouth daily. Active Active Problems Problem Noted Date Diagnosed Date Leukocytosis (leucocytosis) 03/11/2021 Family History Medical History Relation Name Comments Heart Disease Father Skin Cancer Father Diabetes Mother Relation Name Status Comments Brother 1 Alive Brother 2 Alive Brother 3 Alive Daughter Alive Father Alive agent orange Mother Social History Tobacco Use Types Packs/Day Years Used Date Smoking Tobacco: Every Day Cigarettes Cigars Smokeless Tobacco: Never Alcohol Use Standard Drinks/Week Comments Yes 0 (1 standard drink = 0.6 oz pur e alcohol) Sex and Gender Information Value Date Recorded Sex Assigned at Not on file Legal Sex Male 4:07 PM CDT Gender Identity Not on file Sexual Orientation Not on file Last Filed Vital Signs Vital Sign Reading Time Taken Comments Blood Pressure 107/72 03/11/2021 3:15 PM CDT Pulse 75 03/11/2021 3:15 PM CDT Temperature 37.2 C (98.9 F) 03/11/2021 3:15 PM CDT Respiratory Rate - - Oxygen Saturation 96% 03/11/2021 3:15 PM CDT Inhaled Oxygen Concentration - - Weight 87.4 kg (192 lb 9.6 oz) 03/11/2021 3:15 P M CDT Height 170.2 cm (5' 7) 03/11/2021 3:15 PM CDT Body Mass Index 30.17 03/11/2021 3:15 PM CDT Plan of Treatment Health Maintenance Due Date Last Done Comments DTAP/TDAP/TD VACCINES (1 - Tdap) 2002 HEPATITIS B VACCINES (1 of 3 - 19+ 3-dose series) 2002 INFLUENZA VACCINE (#1) 2023 HPV VACCINES Aged Out No longer eligi ble based on patient's age to complete this topic [place] [address] [place] [address] MEDICAID Care Teams [employer] Operator Relationship Specialty Start Date End Date Bill Carrington MD [address] [place] [phone] PCP - General Emergency Medicine 03/11/21
--- OUTSIDE RECORDS SUMMARY | 2024-10-19 14:58 | XMS_ITS | Clinical Summary ---
Author Organization [facility] Address [address] [place] [address] Care Team Providers Care Wellness Specialist Name Role Phone Bill Carrington MD Primary Care Provider [phone] Source Comments [facility],non-owned Affiliates and Associated Physician Practices is amultiple site organization consisting of ambulatory clinics and hospital sitesin [place], [place], [place] and [place]. This disclosure is being madepursuant to the Care Everywhere program and may not contain all information available regarding this patient. Last updated 18.[facility] [employer] Allergies Active Allergy Reactions Criticality Noted Date Comments Penicillins Anaphylaxis High 03/11/2021 Medications * Be aware that medications may not be up to date on this document. Alwaysverify current medications with the patient. HYDROcodone-acet aminophen (NORCO) 5-325 MG tablet Take 1 (one) tablet by mouth every 4 hours as needed Active cyclobenzaprine (FLEXERIL) 10 MG tablet Take 1 (one) tablet by mouth as needed Active ALLERGY RELIEF 180 MG tablet Take 1 (one) tablet by mouth once daily as needed 11/04/2021 Active vitamin D, ergocalciferol, (DRISDOL) 1.25 MG (59719 UT) capsule 05/24/2021 Active ibuprofen (MOTRIN) 600 MG tablet Take 1 (one) tablet by mouth every 6 hours as needed 11/06/2021 Active Ibuprofen (ADVIL MIGRAINE PO) Take by mouth as needed Active azithromycin (Zithromax) 500 MG tablet Take 1 (one) tablet by mouth once daily 12/25/2022 Active methocarbamol (Robaxin) 750 MG tablet Take 1 (one) tablet by mouth 3 times daily 12/20/2022 Active Active Problems No known active problems Resolved Problems Problem Noted Date Diagnosed Date Resolved Date Leukocytosis (leucocytosis) 03/11/2021 01/20/2024 Encounters Date Type Department Care Team Description 09/23/2024 Refill [facility] - [facility]rology [address], [place] [address] Yuri Montelongo APRN-DAVID Refill Request from Last 3 Months Social History Tobacco Use Types Packs/Day Years Used Date Smoking Tobacco: Every Day Cigarettes Smokeless Tobacco: Never Tobacco Cessation:Ready to Q uit: Not Asked; Counseling Given: Not Answered Alcohol Use Standard Drinks/Week Comments Yes 0 (1 standard drink = 0.6 oz pur e alcohol) rarely Sex and Gender Information Value Date Recorded Sex Assigned at Not on file Legal Sex Male 5:35 AM [employer] Gender Identity Not on file Sexual Orientation Not on file Last Filed Vital Signs Vital Sign Reading Time Taken Comments Blood Pressure 110/80 01/20/2024 11:10 AM CDT Pulse 69 01/20/2024 11:10 AM CDT Temperature 36.7 C (98 F) 01/20/2024 11:10 AM CDT Respiratory Rate 16 01/20/2024 11:10 AM CDT Oxygen Saturation 97% 01/20/2024 11:10 AM CDT Inhaled Oxygen Concentration - - Weight 94.3 kg (208 lb) 01/20/2024 11:10 AM CDT Height 172.7 cm (5' 8) 01/20/2024 11:10 AM CDT Body Mass Index 31.63 01/20/2024 11:10 AM CDT Plan of Treatment Health Maintenance Due Date Last Done Comments LIPID TESTING 1985 HIV SCREENING 1998 HEPATITIS C SCREENING 03/15/2001 DTAP/TDAP/TD VACCINES (1 - Tdap) 2002 HEPATITIS B VACCINE (1 of 3 - 19+ 3-dose series) 2002 PNEUMOCOCCAL VACCINE (1 of 2 - PCV) 2002 SCREENING FOR DIABETES 01/20/2024 COVID-19 VACCINE ( - 2023-2 5 season) 2024 DEPRESSION SCREENING 05/25/2024 INFLUENZA VACCINE (Season Ended) 2025 ZOSTER VACCINE (1 of 2) 2033 HIB VACCINE Aged Out No longer eligi ble based on patient's age to complete this topic HPV VACCINE Aged Out No longer eligi ble based on patient's age to complete this topic MENINGOCOCCAL (Group B) VACC INE SHARED DECISION-MAKING Aged Out No longer eligibl e based on patient's age to complete this topic MENINGOCOCCAL GROUPS A/C/Y/W VACCINE Aged Out No longer eligible b ased on patient's age to complete this topic Insurance Care Teams Wellness Specialist Relationship Specialty Start Date End Date Bill Carrington MD [address] [facility] [address] [place] [address] [facility] - General 02/26/21
--- OUTSIDE RECORDS SUMMARY | 2024-10-19 14:58 | XMS_ITS ---
Author Organization [facility] Care Team Providers Care Linderman Operator Name Role Phone Dakota Barajas Unavailable Unavailable Care Team Name Role Address Phone Organization Dates Dakota Barajas PCP [address], [place], [place], [id number], [place] (Office): [phone] [facility] 06/20/2015 - 06/21/2015 Reason for Referral No Reasons for Referral Entered Social History Social History Observation Description Start Date End Date Code Code System Current Smoking Status Tobacco smoking consumption unknown [id number] SNOMED CT Sex Assigned At Male 1985 [id number] [facility] Gender Identity
--- OUTSIDE RECORDS SUMMARY | 2024-10-19 14:58 | XMS_ITS | Continuity of Care Document ---
Author Organization [facility] Address [address] [place] [address] Phone Care Team Providers Care Coater Carbon Paper Name Role Phone Administrative, Provider Unavailable Unavail able Procedures Procedure Date Medical Record Copy Medical Record Copy Per Page Affidavit Affidavit Rating Letter Postop followup visit Supplemental Report Postop followup visit Supplemental Report Postop followup visit Supplemental Report Postop followup visit Supplemental Report Knee arthscpy mnsctmy medial & lat Office consultation, moderate 9 Work/medical disability examination SHANTAL X-ray exam of knee, 3 views Prolonged serv, w/o contact, 1st hr Advance Directives Directive Yes / No Effective Date File Name No Information Encounters Encounter Description Practice Location Reason(s) For Visit Diagnoses Date Provider Providers Copied on Encounter [facility], [address] [place] [address], [id number], tel:[phone] [facility] No Information 0 Administrative Provider. [address] [place] [address], [place] [address], [place], [place], [id number], [place]. tel:[phone] Rating Letter [facility], [address] [place] [address], [place], [place], [id number], [place] tel:[phone] [facility] No Information 0 Sofía Leal. [address], [address], [place], [place], [id number], [place]. tel:[phone] [facility], [address], [place], [place], [id number], [place] tel:[phone] [facility] No Information 0 Sofía Leal. [address], [address], [place], [place], [id number], [place]. tel:[phone] [facility], [address] [address], [place], [place], [id number], [place] tel:[phone] [facility] No Information 0 Sofía Leal. [address], [facility] [address], [place], [place], [id number], [place]. tel:[phone] [facility], [address] [address], [place], [place], [id number], [place] tel:[phone] [facility] No Information 9 Sofía Leal. [address], [facility] [address], [place], [place], [id number], [place]. tel:[phone] [facility], [address] [address], [place], [place], [id number], [place] tel:[phone] [facility] No Information 9 Sofía Leal. [address], [address], [place], [place], [id number], [place]. tel:[phone] [facility], [address] [facility] [address], [place], [place], [address], [place] tel:[phone] [facility] No Information 0 9 Sofía Leal. [address], [facility] [address], [place], [place], [id number], [place]. tel:[phone] Office consultation , moderate [facility], [address] [place] [address], [id number], tel:[phone] [facility] No Information 9 Sofía Leal. [address] [facility], [place] [address], [place], [place], [id number], . tel:[phone] Work/medical disability examination SHANTAL [facility], [address] [place] [address], [id number], tel:[phone] [facility] No Information Sofía Leal. [address] [place] [address], [place] [address], [place], [place], [id number], [place]. tel:[phone] Family History Family Member Type Diagnosis Age At Onset No Information Payers Payer name Insurance type Covered democrat ID Authoriza tion(s) No Information Social History Type Description Quantity Date Captured Comments Sex Male Smoking Status No Information Chief Complaint And Reason For Visit No Information Reason For Referral Reason For Referral No Information History Of Present Illness Encounter Date Complaint History Of Prese nt Illness No Information Functional Status Date Functional Assessmen t No Information Instructions Date Instruction Additional Infor mation No Information Assessments Type Assessment Date No Information Patient Care Teams Name Effective Dates (start - stop) Status Members No Information
--- OUTSIDE RECORDS SUMMARY | 2024-10-19 14:58 | XMS_ITS | Continuity of Care Document ---
Author Organization [facility] Address [address] [place] [address] Phone Care Team Providers Care End User Consultant Name Role Phone Molly FALCON, Lisandro Unavailable Unavailable Allergies, Adverse Reactions, Alerts Substance Reaction Status Criticality Penicillins Active No Information Medications Medication Instructions Dosage Effective Dates (start - stop) Status Comments Zyrtec 10 mg tablet take 1 tablet by ora l route every day 10 MG - Active ibuprofen 800 mg tablet take 1 tablet by oral route 3 times every day with food 800 MG - Active methocarbamol 750 mg tablet take 1 tablet by oral route every 8 hours 750 MG - Active Procedures Procedure Date RADEX SPI LUMBOSAC 2/3 VIEWS DISABILITY EXAMINATION Advance Directives Directive Yes / No Effective Date File Name No Information Encounters Encounter Description Practice Location Reason(s) For Visit Diagnoses Date Provider Providers Copied on Encounter DISABILITY EXAMINATION [facility], [address], [place], [address], tel:[phone] [facility] My back and legs hurt alot (chief complaint) Low back painBody mass index (BMI) 26.0-26.9, adultPersonal history of nicotine dependenceLumbar radiculitis 9 Molly Mcmahon. [address] , [place], [place], [id number] . tel:[phone] Family History Family Member Type Diagnosis Age At Onset Father Problem (finding) Family history unknown Mother Problem (finding) Family history unknown Payers Payer name Insurance type Covered republican ID Authoriza tion(s) No Information Social History Type Description Quantity Date Captured Comments Alcohol Use Details No Caffeine Use Details Tobacco Use Status Moderate cigarette smoker (10-19 cigs/day) Smoking Status Heavy tobacco smoker Smoking Tobacco Use Details Cigarette: Years Used 20 Cigarette: 0.5 Packs per day, Pack Year: 10 Sex Male Vital Signs Date / Time: Height Weight BMI Pulse Rate Blood Pressure Temperature Respiratory Rate Body Surface Area Head Circumference Head Circ. Percentile Wt./Ned. Percentile BMI percentile Pulse Ox Inhaled Ox 3:09 PM 67.00 in 77.111 kg (170.00 lbs) 26.6 3 kg/m eter (2) 124/76 mm[Hg] Chief Complaint And Reason For Visit From encounter dated '06/17/2018 14:15'. My back and legs hurt alot (chief complaint) Reason For Referral Reason For Referral No Information Plan Of Treatment Date Type Action Status Referral Ordered: RADEX SPI LUMBOSAC 2/3 VIEWS ordered Patient Education Stopping Smoking: Care Instructions completed History Of Present Illness Encounter Date Complaint History Of Prese nt Illness My back and legs hurt alot Functional Status Date Functional Assessmen t Pain Score 8/10 Instructions Date Instruction Additional Infor mation Dietary needs education Related to Body mass index (BMI) 26.0-26.9, adult Assessments Type Assessment Date assessment Low back pain assessment Body mass index (BMI) 26.0-26.9, adult assessment Personal history of nicotine dep endence assessment Lumbar radiculitis Patient Care Teams Name Effective Dates (start - stop) Status Members No Information
[2024-10-19 15:08] VITALS: BP 136/77; PULSE 80; RESP 16; TEMP 36.4; O2SAT 99
--- NOTE | 2024-10-19 16:14 | ED_ITS ---
HPI - Abdominal Pain General Chief Complaint: Abdominal Pain <Nereyda Gomes PA-C - Last Filed: 10/20/24 09:15> Stated Complaint: Bilat lower abd pain L>R, urine dip normal <Nereyda Gomes PA-C - Last Filed: 10/20/24 09:15> Time Seen by Provider: 10/19/24 16:14 <Nereyda Gomes PA-C - Last Filed: 10/20/24 09:15> Focused HPI: This is a 39 year old male that presents to the ER lower abdominal pain. Ongoing since earlier this morning. Denies fever, vomiting, dysuria, hematuria, diarrhea. GENERAL: Well-appearing, well-nourished, and in no acute distress. HEAD: Normocephalic, atraumatic. CHEST: Clear to auscultation. ?No respiratory distress. HEART: Regular rate and rhythm.? NEURO: ?Alert and oriented x3. Patient screened in triage and initial orders placed.? ?Additional care and disposition to be based upon?diagnostic testing and treatment. <Nereyda Gomes PA-C - Last Filed: 10/20/24 09:15> History of Present Illness HPI narrative: Agree with the HPI above <Jose Shaikh MD - Last Filed: 10/19/24 20:24> Related Data Allergies/Adverse Reactions: Allergies Allergy/AdvReac Type Severity Reaction Status Date / Time Penicillins Allergy Severe Swelling Verified 10/19/24 14:53 amoxicillin Allergy Unknown Unknown Verified 10/19/24 14:53 aspirin AdvReac Mild Diarrhea Verified 10/19/24 14:53 prednisone AdvReac Swelling Verified 10/19/24 14:53 of the Eye <ANNETTE Sears Last Filed: 10/20/24 09:15> Review of Systems 2 Review of Systems: As reviewed above <Jose Shaikh MD - Last Filed: 10/19/24 20:24> PMFSH Past Medical History Medical History: Medical History Chronic back pain Migraine History of traumatic brain injury <Nereyda Gomes PA-C - Last Filed: 10/20/24 09:15> Surgical History Surgical History: Surgical History H/O inguinal hernia repair History of meniscectomy of left knee History of lumbar fusion <Nereyda Gomes PA-C - Last Filed: 10/20/24 09:15> Social History Social History: Social History Smoking status: Former smoker Smoking end date: 06/29/22 Alcohol intake: current Alcohol use details: social Substance use: current Substance use type: opiates Last use: pain control for chronic back pain Living arrangements: with family Gender identity (if verbalized by the patient): Male <Nereyda Gomes PA-C - Last Filed: 10/20/24 09:15> Exam 2 Narrative: GENERAL: [Well-appearing, well-nourished, and in no acute distress.] HEAD: [Normocephalic, atraumatic.] EYES: [PERRLA and EOMI.] ENT: Nares clear, no rhinorrhea or epistaxis. Mucous membranes moist. NECK: Supple. CHEST: [Clear to auscultation. No respiratory distress.] HEART: [Regular rate and rhythm]. No murmur heard. [Normal peripheral pulses.] ABDOMEN: [Soft, nondistended], mild tenderness to palpation the right lower quadrant and left lower quadrant right worse than left. No signs of rigidity or guarding, no peritonitis EXTREMITIES: Normal range of motion. [No edema.] SKIN: Warm, dry, no rash. NEURO: [No focal deficits]. Alert and oriented [x3.] PSYCH: [Normal mood and affect.] <Jose Shaikh MD - Last Filed: 10/19/24 20:24> Course Vital Signs Vital signs: Vital Signs Temperature 97.6 F 10/19/24 15:08 Pulse Rate 80 10/19/24 15:08 Respiratory Rate 16 10/19/24 15:08 Blood Pressure 136/77 10/19/24 15:08 Pulse Oximetry 99 10/19/24 15:08 Temperature 98.2 F 10/19/24 20:31 Pulse Rate 65 10/19/24 20:31 Respiratory Rate 15 10/19/24 20:31 Blood Pressure 139/90 10/19/24 20:31 Pulse Oximetry 98 10/19/24 20:31 <Nereyda Gomes PA-C - Last Filed: 10/20/24 09:15> Vital Signs Temperature 97.6 F 10/19/24 15:08 Pulse Rate 80 10/19/24 15:08 Respiratory Rate 16 10/19/24 15:08 Blood Pressure 136/77 10/19/24 15:08 Pulse Oximetry 99 10/19/24 15:08 Temperature 98.2 F 10/19/24 20:31 Pulse Rate 65 10/19/24 20:31 Respiratory Rate 15 10/19/24 20:31 Blood Pressure 139/90 10/19/24 20:31 Pulse Oximetry 98 10/19/24 20:31 <Jose Shaikh MD - Last Filed: 10/19/24 20:24> MDM - Abdominal Pain MDM Narrative Medical decision making narrative: 39-year-old male with a past surgical history including inguinal hernia repair in childhood. Patient presents to the emergency department with bilateral lower abdominal pain for last several hours. He states he went to bed last than normal and woke up today with some lower abdominal pain. Going to the restroom without difficulty including normal bowel movements and normal urination. No nausea, vomiting, fever, chills, night sweats. Pain is more localized to the right lower quadrant. No trauma or injuries. Still has his appendix and gallbladder. No testicular pain or swelling. Did not take anything for pain prior to arrival. Endorses intermittent cramping sensations of pain. Abdomen does have some mild tenderness and he has normal vital signs. Laboratory studies ordered in triage including CBC, CMP, lipase, urinalysis. Suspicion presently is for gastroenteritis, gastritis, colitis, ileus, less likely obstruction, appendicitis, diverticulitis or viscus injury. CT scan with contrast was ordered and he was given combination medications including morphine, Zofran, fluid bolus and Bentyl. Patient will be re-evaluated frequently. Patient's laboratory studies reassuring. He has no leukocytosis or anemia. Normal platelet count. Normal LFTs and kidney function. Normal electrolytes. Urinalysis shows some cloudy appearance but no signs of infection. CT scan shows no evidence of appendicitis, diverticulitis or any intestinal obstruction. He has some fatty infiltration of the liver but likely not related. Patient had improvement in symptoms after reassessment and given his unremarkable workup negative CT scan he can be safely discharged with primary care provider follow-up an as-needed Bentyl for symptom control. Patient given return precautions and discharge. <Jose Shaikh MD - Last Filed: 10/19/24 20:24> Medical Records Attestation: I reviewed the patient's medical records. <Jose Shaikh MD - Last Filed: 10/19/24 20:24> Lab Data Attestation: I reviewed the patient's lab results. <Jose Shaikh MD - Last Filed: 10/19/24 20:24> Result diagrams: 10/19/24 18:36 10/19/24 18:36 <Nereyda Gomes PA-C - Last Filed: 10/20/24 09:15> Labs: Lab Results 10/19/24 10/19/24 Range/Units 18:17 18:36 WBC 9.3 (4.5-10.0) K/mm3 RBC 4.96 (4.6-6.20) M/mm3 Hgb 15.0 (14.0-18.0) g/dL Hct 44.3 (42.0-52.0) % MCV 89.3 (80-100) fl MCH 30.2 (26-34) pg MCHC 33.9 (32-36) g/dl RDW 12.6 (11.5-14.5) % Plt Count 243 (150-375) k/mm3 MPV 10.1 (7.4-10.4) fl Immature Gran % (Auto) 0.2 (0-0.5) % Neut % (Auto) 57.4 (45.5-73.1) % Lymph % (Auto) 29.4 (18.3-44.2) % [place] % (Auto) 10.3 H (2.6-8.5) % Eos % (Auto) 2.1 (0-4.4) % Baso % (Auto) 0.6 (0.2-1.2) % Lymph # (Auto) 2.74 (0.9-3.2) K/mm3 [place] # (Auto) 1.0 H (0.1-0.6) K/mm3 Eos # (Auto) 0.2 (0-0.3) K/mm3 Baso # (Auto) 0.1 (0.0-0.1) K/mm3 Abs Immat Gran (auto) 0.02 (0.00-0.031) K/mm3 Absolute Neuts (auto) 5.3 (1.3-6.7) K/mm3 Absolute Nucleated RBC 0.000 (0.0-0.012) K/mm3 Nucleated RBC % 0.0 (0.0-0.2) % Sodium 140 (137-145) mmol/L Potassium 3.9 (3.4-5.0) mmol/L Chloride 104 (98-107) mmol/L Carbon Dioxide 30 (22-30) mmol/L Anion Gap 6 (4-12) mmol/L BUN 11 (9-20) mg/dL Creatinine 1.18 (0.7-1.3) mg/dL Estim Creat Clear Calc 83 ml/min Estimated GFR > 60 (59 - ) Glucose 94 (65-110) mg/dL Calcium 9.2 (8.4-10.2) mg/dL Total Bilirubin 0.7 (0.2-1.3) mg/dL AST 32 (17-59) U/L ALT 33 (6-50) U/L Alkaline Phosphatase 87 (38-126) U/L Total Protein 8.0 (6.3-8.2) g/dL Albumin 4.4 (3.5-5.1) g/dL Lipase 110 (23-300) U/L Urine Color Yellow (Yellow) Urine Appearance Cloudy H (Clear) Urine pH 5.5 (5.0-9.0) Ur Specific [place] 1.019 (1.001-1.035) Urine Protein Negative (Negative) mg/dL Urine Glucose (UA) Negative (Negative) mg/dL Urine Ketones Negative (Negative) mg/dL Ur Blood (Man) Negative (Negative) Urine Nitrate Negative (Negative) Urine Bilirubin Negative (Negative) Urine Urobilinogen 0.2 (<2.0) mg/dL Leukocyte Esterase Rfl Negative (Negative) SANTIAGO/UL Urine RBC 0-2 (0-2) /hpf Urine WBC 0-5 (0-3) /hpf Ur Squamous Epith Cells None seen (Few) /hpf Urine Bacteria None seen /hpf Urine Casts 0-2 <Nereyda Gomes PA-C - Last Filed: 10/20/24 09:15> Lab Results 10/19/24 10/19/24 Range/Units 18:17 18:36 WBC 9.3 (4.5-10.0) K/mm3 RBC 4.96 (4.6-6.20) M/mm3 Hgb 15.0 (14.0-18.0) g/dL Hct 44.3 (42.0-52.0) % MCV 89.3 (80-100) fl MCH 30.2 (26-34) pg MCHC 33.9 (32-36) g/dl RDW 12.6 (11.5-14.5) % Plt Count 243 (150-375) k/mm3 MPV 10.1 (7.4-10.4) fl Immature Gran % (Auto) 0.2 (0-0.5) % Neut % (Auto) 57.4 (45.5-73.1) % Lymph % (Auto) 29.4 (18.3-44.2) % [place] % (Auto) 10.3 H (2.6-8.5) % Eos % (Auto) 2.1 (0-4.4) % Baso % (Auto) 0.6 (0.2-1.2) % Lymph # (Auto) 2.74 (0.9-3.2) K/mm3 [place] # (Auto) 1.0 H (0.1-0.6) K/mm3 Eos # (Auto) 0.2 (0-0.3) K/mm3 Baso # (Auto) 0.1 (0.0-0.1) K/mm3 Abs Immat Gran (auto) 0.02 (0.00-0.031) K/mm3 Absolute Neuts (auto) 5.3 (1.3-6.7) K/mm3 Absolute Nucleated RBC 0.000 (0.0-0.012) K/mm3 Nucleated RBC % 0.0 (0.0-0.2) % Sodium 140 (137-145) mmol/L Potassium 3.9 (3.4-5.0) mmol/L Chloride 104 (98-107) mmol/L Carbon Dioxide 30 (22-30) mmol/L Anion Gap 6 (4-12) mmol/L BUN 11 (9-20) mg/dL Creatinine 1.18 (0.7-1.3) mg/dL Estim Creat Clear Calc 83 ml/min Estimated GFR > 60 (59 - ) Glucose 94 (65-110) mg/dL Calcium 9.2 (8.4-10.2) mg/dL Total Bilirubin 0.7 (0.2-1.3) mg/dL AST 32 (17-59) U/L ALT 33 (6-50) U/L Alkaline Phosphatase 87 (38-126) U/L Total Protein 8.0 (6.3-8.2) g/dL Albumin 4.4 (3.5-5.1) g/dL Lipase 110 (23-300) U/L Urine Color Yellow (Yellow) Urine Appearance Cloudy H (Clear) Urine pH 5.5 (5.0-9.0) Ur Specific [place] 1.019 (1.001-1.035) Urine Protein Negative (Negative) mg/dL Urine Glucose (UA) Negative (Negative) mg/dL Urine Ketones Negative (Negative) mg/dL Ur Blood (Man) Negative (Negative) Urine Nitrate Negative (Negative) Urine Bilirubin Negative (Negative) Urine Urobilinogen 0.2 (<2.0) mg/dL Leukocyte Esterase Rfl Negative (Negative) SANTIAGO/UL Urine RBC 0-2 (0-2) /hpf Urine WBC 0-5 (0-3) /hpf Ur Squamous Epith Cells None seen (Few) /hpf Urine Bacteria None seen /hpf Urine Casts 0-2 <Jose Shaikh MD - Last Filed: 10/19/24 20:24> Imaging Data Attestation: I personally reviewed and interpreted this imaging study as follows: < Jose Shaikh MD - Last Filed: 10/19/24 20:24> My impression: Impressions Abdomen/Pelvis CT 10/19/24 20:08 IMPRESSION: 1. No evidence of appendicitis, diverticulitis or intestinal obstruction. 2. Fat infiltration of the liver. <Jose Shaikh MD - Last Filed: 10/19/24 20:24> Radiologist's impression: ITS Impressions Abdomen/Pelvis CT 10/19/24 20:08 IMPRESSION: 1. No evidence of appendicitis, diverticulitis or intestinal obstruction. 2. Fat infiltration of the liver. <Nereyda Gomes PA-C - Last Filed: 10/20/24 09:15> ITS Impressions Abdomen/Pelvis CT 10/19/24 20:08 IMPRESSION: 1. No evidence of appendicitis, diverticulitis or intestinal obstruction. 2. Fat infiltration of the liver. <Jose Shaikh MD - Last Filed: 10/19/24 20:24> Critical Care Time Critical Care Time Critical Care Time: No <Nereyda Gomes PA-C - Last Filed: 10/20/24 09:15> Discharge Plan Discharge Clinical Impression: Bilateral lower abdominal pain <Nereyda Gomes PA-C - Last Filed: 10/20/24 09:15> Patient Disposition: Home <Nereyda Gomes PA-C - Last Filed: 10/20/24 09:15> Condition: Stable <Nereyda Gomes PA-C - Last Filed: 10/20/24 09:15> Instructions: Antibiotic Form, Abdominal Pain (ED) <Nereyda Gomes PA-C - Last Filed: 10/20/24 09:15> Additional Instructions: Your laboratory studies are all normal and your CT scan shows no evidence of any acute issues. No signs of appendicitis, diverticulitis or any obstruction. There is some minor fatty infiltration of the liver but this can be followed up with and not related to your symptoms. Your liver panel was otherwise normal. We will send you home with [facility] for symptomatic control. Return with any emergent or worsening concerns. <Nereyda Gomes PA-C - Last Filed: 10/20/24 09:15> Patient Language: Northern Irish <Nereyda Gomes PA-C - Last Filed: 10/20/24 09:15> Prescriptions: New dicyclomine 20 mg tablet 20 mg PO TID PRN (Reason: abdominal pain) Qty: 14 0RF No Action albuterol sulfate 90 mcg/actuation HFA aerosol inhaler 2 inh inhalation Q4-6H PRN (Reason: shortness of breath or wheezing) Qty: 8.5 0RF <Nereyda Gomes PA-C - Last Filed: 10/20/24 09:15> Follow-up/Referrals: Bill Carrington MD [Primary Care Provider] - <Nereyda Gomes PA-C - Last Filed: 10/20/24 09:15> Time of Disposition: 20:24 <Nereyda Gomes PA-C - Last Filed: 10/20/24 09:15> 20:24 <Jose Shaikh MD - Last Filed: 10/19/24 20:24>
[2024-10-19 18:34] LABS: Add Urine Microscopic? YES; Appearance Urine Cloudy (Clear); Bacteria Urine None Seen /hpf; Bilirubin Urine Negative (Negative); Blood Urine Negative (Negative); Color Urine Yellow (Yellow); Glucose Urine UA Negative (Negative); Ketones Urine Negative (Negative); Leukocyte Esterase Ur Negative LEU/UL (Negative); Nitrate Urine Negative (Negative); Non Pathogenic Casts 0-2; Protein Urine Negative (Negative); RBC Urine 0-2 /hpf (0-2); Specific Grav Ur 1.019 (1.001-1.035); Squamous Epithelial Cell Urine None Seen /hpf (Few); Urobilinogen Urine 0.2 mg/dL (<2.0); WBC Urine 0-5 /hpf (0-3); pH Urine 5.5 (5.0-9.0)
[2024-10-19 18:43] LABS: Basophils Absolute Auto 0.1 K/mm3 (0.0-0.1); Basophils Percent Auto 0.6 % (0.2-1.2); Eosinophils Absolute Auto 0.2 K/mm3 (0-0.3); Eosinophils Percent Auto 2.1 % (0-4.4); Hematocrit 44.3 % (42.0-52.0); Immature Granulocyte Absolute 0.02 K/mm3 (0.00-0.031); Immature Granulocyte Percent A 0.2 % (0-0.5); Lymphocytes Absolute Auto 2.74 K/mm3 (0.9-3.2); Lymphocytes Percent Auto 29.4 % (18.3-44.2); Mean Corpuscular HGB Conc 33.9 g/dl (32-36); Mean Corpuscular Hemoglobin 30.2 pg (26-34); Mean Corpuscular Volume 89.3 fl (80-100); Mean Platelet Volume 10.1 fl (7.4-10.4); Monocytes Percent Auto 10.3 % (2.6-8.5); Neutrophils Absolute Auto 5.3 K/mm3 (1.3-6.7); Neutrophils Percent Auto 57.4 % (45.5-73.1); Platelet Count Result 243 k/mm3 (150-375); Red Blood Count 4.96 M/mm3 (4.6-6.20); Red Cell Distribution Width 12.6 % (11.5-14.5); White Blood Count 9.3 K/mm3 (4.5-10.0)
[2024-10-19 18:53] LABS: Alanine Aminotransferase 33 U/L (6-50); Albumin Level 4.4 g/dL (3.5-5.1); Alkaline Phosphatase 87 U/L (38-126); Anion Gap 6 mmol/L (4-12); Aspartate Amino Transferase 32 U/L (17-59); Bilirubin,Total 0.7 mg/dL (0.2-1.3); Blood Urea Nitrogen 11 mg/dL (9-20); Calcium 9.2 mg/dL (8.4-10.2); Carbon Dioxide 30 mmol/L (22-30); Chloride 104 mmol/L (98-107); Estimated CRCL calculation 83 ml/min; Estimated Glomerular Filt Rate > 60; Glucose 94 mg/dL (65-110); Lipase 110 U/L (23-300); Potassium 3.9 mmol/L (3.4-5.0); Sodium 140 mmol/L (137-145)
[2024-10-19 19:26] VITALS: BP 131/92; PULSE 67; RESP 15; O2SAT 99
[2024-10-19] MEDS: DICYCLOMINE HCL 10 MG CAPSULE 20 MG PO (19:35)
[2024-10-19] MEDS: MORPHINE SULFATE (*CRX) 4 MG/ML INJ IV PUSH (19:36)
[2024-10-19] MEDS: ONDANSETRON INJ 4 MG/2 ML VIAL IV PUSH (19:36)
[2024-10-19] MEDS: LACTATED RINGERS 1,000 ML 999 ML IV CONT (19:36)
--- OUTSIDE RECORDS SUMMARY | 2024-10-19 20:07 | XMS_ITS | Continuity of Care Document ---
Author Organization [facility] Address [address] [place] [address] Phone Care Team Providers Care Vice President Business & Corporate Development Name Role Phone Molly FALCON, Lsiandro Unavailable Unavailable Allergies, Adverse Reactions, Alerts Substance [...] on Encounter DISABILITY EXAMINATION [facility], [address], [place], [address], tel:[phone] [facility] My back and legs hurt alot (chief complaint) Low back painBody mass index (BMI) 26.0-26.9, adultPersonal history of nicotine dependenceLumbar radiculitis 9 Molly Mcmahon. [address] , [place], [place], [id number] . tel:[phone] Family History Family Member Type Diagnosis Age [...]
--- OUTSIDE RECORDS SUMMARY | 2024-10-19 20:07 | XMS_ITS ---
Author Organization [facility] Care Team Providers Care Automotive Engineering Teacher Name Role Phone Dakota Barajas Unavailable Unavailable Care Team Name Role Address Phone Organization Dates Dakota Barajas PCP [address], [place], [place], [id number], [place] (Office): [phone] [facility] 06/20/2015 - 06/21/2015 Reason for Referral No Reasons for Referral Entered Social History Social History Observation Description Start Date End Date Code Code System Current Smoking Status Tobacco smoking consumption unknown [id number] SNOMED CT Sex Assigned At Male 1985 [address]-2 [facility] Gender Identity
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
--- OUTSIDE RECORDS SUMMARY | 2024-10-19 20:08 | XMS_ITS | Continuity of Care Document ---
Author Organization [facility] Address [address] [place] [address] Phone Care Team Providers Care Dietary Director Name Role Phone Administrative, Provider Unavailable Unavail [...] Date Provider Providers Copied on Encounter [facility], [address] [place] [address], [id number], tel:[phone] [facility] No Information 0 Administrative Provider. [address] [place] [address], [place] [address], [place], [place], [id number], [place]. tel:[phone] Rating Letter [facility], [address] [place] [address], [place], [place], [id number], [place] tel:[phone] [facility] No Information 0 Sofía Leal. [address], [place], [place], [id number], [place]. tel:[phone] [facility], [address] [facility] [address], [place], [place], [id number], [place] tel:[phone] [facility] No Information 0 Sofía Leal. [address], [place], [place], [id number], [place]. tel:[phone] [facility], [address] [place] [address], [place], [place], [id number], [place] tel:[phone] [facility] No Information 0 Sofía Leal. [address], [facility] [address], [place], [place], [id number], [place]. tel:[phone] [facility], [address] [address], [place], [place], [id number], [place] tel:[phone] [facility] No Information 9 Sofía Leal. [address], [facility] [address], [place], [place], [id number], [place]. tel:[phone] [facility], [address] [address], [place], [place], [id number], [place] tel:[phone] [facility] No Information 9 Sofía Leal. [address], [address], [place], [place], [id number], [place]. tel:[phone] [facility], [address] [facility] [address], [place], [place], [id number], [place] tel:[phone] [facility] No Information 0 9 Sofía Leal. [address], [facility] [address], [place], [place], [id number], [place]. tel:[phone] Office consultation , moderate [facility], [address] [place] [address], [id number], tel:[phone] [facility] No Information 9 Sofía Leal. [address] [facility], [place] [address], [place], [place], [id number], . tel:[phone] Work/medical disability examination SHANTAL [facility], [address] [place] [address], [id number], tel:[phone] [facility] No Information Sofía Leal. [address] [place] [address], [place] [address], [place], [place], [id number], [place]. tel:[phone] Family History Family Member Type Diagnosis Age At Onset No Information Payers Payer name Insurance type Covered constitution party ID Authoriza tion(s) No Information Social History [...]
--- OUTSIDE RECORDS SUMMARY | 2024-10-19 20:08 | XMS_ITS | Clinical Summary ---
Author Organization [facility]enezerdorian daug[facility] Address [address] [place] [address] Care Team Providers Care Management Accounts Manager Name Role Phone Bill Carrington MD Primary Care Provider [phone] Allergies Active Allergy Reactions Criticality Noted Date [...] patient's age to complete this topic [place] [address] MEDICAID Care Teams Management Accounts Manager Relationship Specialty Start Date End Date Bill Carrington MD [address] [place] [id number] PCP - General Emergency Medicine 03/11/21
[2024-10-19 20:20] VITALS: BP 139/90; PULSE 69; RESP 15; O2SAT 100
[2024-10-19 20:31] VITALS: BP 139/90; PULSE 65; RESP 15; TEMP 36.8; O2SAT 98
== END 2024-10-19 20:33 | disposition home or self-care (01) ==
PROVIDERS: Physician Assistant; Emergency Provider Student in an Organized Health Care Education/Training Program; PCP Emergency Medicine
DX: R10.32 Left lower quadrant pain (principal); R10.31 Right lower quadrant pain; Z87.820 Personal history of traumatic brain injury; Z98.1 Arthrodesis status; Z87.891 Personal history of nicotine dependence; K76.0 Fatty (change of) liver, not elsewhere classified
CPT/HCPCS: 36415; 74177; 80053; 81001; 83690; 85025; 96361; 96374; 96375; 99284; A9270; J2270; J2405; J7120; Q9967

== ENCOUNTER → 2025-05-22 09:52 | Outpatient (CLI) | payer OTHER, SELFPAY ==
--- NOTE | ~2025-05-22 | XR_ITS ---
XR shoulder LT min 2V 05/22/2025 10:34 Indication: Left shoulder pain Procedure: 3 views left shoulder Comparison: No prior studies for comparison. Findings: No fracture, subluxation or dislocation. No significant soft tissue abnormality. No foreign bodies. Impression: 1: No significant bone or joint abnormality. Reviewed, dictated and finalized at location O. ATOR Impression: 1: No significant bone or joint abnormality.
--- NOTE | ~2025-05-22 | XR_ITS ---
XR_[id number]_CR 05/22/2025 10:34 Indication: Neck pain Procedure: 4 view cervical spine Comparison: No prior studies for comparison. Findings: No fracture, subluxation or dislocation. There are uncinate degenerative changes C3-4, C4-5 and C5-6. Mild levocurvature of the cervical spine. Odontoid process is normal. No prevertebral soft tissue swelling. Lung apices are normal. Impression: 1: Mild cervical spondylosis. Reviewed, dictated and finalized at location O. R COIL TAPER Impression: 1: Mild cervical spondylosis.
--- NOTE | ~2025-05-22 | XR_ITS ---
XR lumbar spine min 4V 05/22/2025 10:34 Indication: Lumbar stenosis Procedure: 5 views lumbar spine Comparison: 10/16/2020 Findings: Roll cage device is present at L5-S1. There is disc narrowing at L4-5. No acute fracture, subluxation or dislocation. There is mild dextrocurvature of the lumbar spine centered at L4. Sacral foramen are symmetric. Visualized bowel gas pattern nonobstructive. Impression: 1: Mild lumbar spondylosis with prosthetic disc devices at L5-S1. Reviewed, dictated and finalized at location O. TER ELECTRONIC Impression: 1: Mild lumbar spondylosis with prosthetic disc devices at L5-S1.
--- NOTE | ~2025-05-22 | XR_ITS ---
XR thoracic spine 3V 05/22/2025 10:34 Indication: Thoracic pain Procedure: 4 views cervical spine Comparison: No prior studies for comparison. Findings: Vertebral body heights are maintained. No fracture, subluxation or dislocation. Mild levocurvature of the thoracic spine. Surrounding osseous structures within normal limits. No paraspinal soft tissue abnormality. Impression: 1: No significant abnormality of the thoracic spine. Reviewed, dictated and finalized at location O. PARALEGAL Impression: 1: No significant abnormality of the thoracic spine.
== END ==
LOC: EXPCRAD 10:02
PROVIDERS: PCP Emergency Medicine
DX: M25.512 Pain in left shoulder (principal); Z79.899 Other long term (current) drug therapy; M48.061 Spinal stenosis, lumbar region without neurogenic claudication; Z98.890 Other specified postprocedural states; M47.26 Other spondylosis with radiculopathy, lumbar region; M47.892 Other spondylosis, cervical region
CPT/HCPCS: 72040; 72072; 72110; 73030